=== PATIENT | female | born 1960 | race African-American/Black ===

== ENCOUNTER 2017-05-05 11:58 | Inpatient (IN) ==
--- NOTE | 2017-05-05 12:56 | Emergency Department Note ---
Silvio Yanes Gwan, am scribing for, and in the presence of, Arcadio Valdez MD 12:51 . Courtney Yanes James D, MD, personally performed the services described in this documentation, ascribed by Negar Anguiano in my presence, and it is both accurate and complete . 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 Mode of Arrival: Wheelchair Limitations: No Limitations Source: Patient, Old Records Reviewed, RN Notes Reviewed - History of Present Illness HPI Narrative: Patient is a 56 y/o female who presents to the ED with a c/o left sided facial / mouth tingling and ARCEO with an onset 2 hours [employer]. Pt has a PMHx of HTN, MS, peripheral neuropathy, IDDM, NIDDM, cyst right kidney (02/20/2016), and Laminectomy (2010). Patient confirmed that sxs onset after her Mammogram appointment. During exam, pt stated that she fell 2 days ago causing her to injury her left knee and that she is followed by Dr. Garcia and Dr. Waters. She denies f/u with orthopedic physician. Onset (ago): hour(s) Consistency: constant Severity: moderate Allergies/Adverse Reactions: Allergies Allergy/AdvReac Type Severity Reaction Status Date / Time No Known Allergies Allergy Verified 07/05/16 06:17 Home Medications: Home Medications Medication Instructions Recorded Confirmed Type Baclofen Tab [Lioresal] 10 mg PO BID 02/27/15 05/05/17 History Duloxetine HCl [Cymbalta] 60 mg PO DAILY 02/27/15 05/05/17 History Simvastatin 40 mg PO BEDTIME 02/27/15 05/05/17 History Indapamide 2.5 mg PO QAM 04/26/16 05/05/17 History hydrALAZINE TAB [Apresoline Tab] 50 mg PO TID #90 tablet 04/30/16 05/05/17 Rx glyBURIDE [Diabeta] 5 mg PO DAILY 05/07/16 05/05/17 History Gabapentin Cap/Tab [Neurontin 1,200 mg PO BID tablet 05/17/16 05/05/17 Rx Cap/Tab] Glatiramer Acetate [Copaxone] 40 mg SUBCUT MOWEFR 06/17/16 05/05/17 History Amlodipine Besylate [Amlodipine 10 mg PO DAILY 08/28/16 05/05/17 History Besylate] Pioglitazone HCl [Actos] 30 mg PO DAILY 05/05/17 05/05/17 History Review of System - Review of System 12 point system: reviewed and no additional remarkable complaints except as stated - Review of System Constitutional: Absent: chills, fever Eyes: Absent: discharge, pain Head/Ears/Nose/Throat: Absent: earache Respiratory: Absent: cough Cardiovascular: Absent: chest pain Gastrointestinal: Absent: abdominal pain, nausea, vomiting, diarrhea Genitourinary female: Absent: dysuria Musculoskeletal: Absent: arm pain, back pain, leg pain Skin: Absent: rash Neurological: Present: as per HPI, headache, other (facial/mouth tingling) Psychiatric: Absent: anxiety, depression Medical,Surgical,& Family Hx - Medical History Cardio: History of: Hypertension Psychological: History of: Depression Neurology: History of: Multiple Sclerosis (DR GARCIA 12/2015 LAST VISIT), Peripheral Neuropathy No history of: Seizures HEENT: History of: Eye Problem (READING GLASSES) Endocrine: History of: Diabetes Mellitus (IDDM), Diabetes Mellitus (NIDDM), Dyslipidemia Renal: History of: Renal Problems (Cyst Rt Kidney 02/20/16 Sched for Drainage; STENT REMOVAL 06/26/16) Genitourinary: History of: Recurring Urinary Tract Infections (2 IN PAST 3-4 MONTHS) Gastrointestinal: History of: GI Problems (CONSTIPATION DUE TO PAIN MEDS, HX OF ULCERS) Musculoskeletal: History of: Back/Neck Problems (CHRONIC BACK PAIN. SCHEDULED 2015.), Musculoskeletal Problems (FRACTURED CO) - Surgical History HEENT Surgeries: Surgical HX of: Tonsilectomy & Adenoidectomy (TONSILS) Abdominal Surgeries: Surgical HX of: Colonoscopy Reproductive Surgeries: Surgical HX of;: Gynecologic Surgery, Hysterectomy, Tubal Ligation Orthopedic Surgeries: Surgical HX of;: Implanted Devices (URETERAL STENTS), Orthopedic Surgery (CARPAL TUNEL RIGHT HAND), Spinal Surgery (LAMINECTOMY 2010) - Family History Family History: Reports;: Family Diabetes (FATHER), Family Heart Disease (MOTHER ), Family Hypertension (MOTHER), Family Stroke (MOTHER) - Social History Smoking Status: Never smoker Exam Physical Examination: GENERAL: This is a female in no apparent distress. VITAL SIGNS: HEENT: Head is normocephalic and atraumatic. Pupils are equally round and reactive to light. Extraocular movement are intact. Oropharynx is benign with moist mucous membranes. NECK: Neck is soft and supple without tenderness. There are no masses. There is no lymphadenopathy. LUNGS: Lungs are clear to auscultation bilaterally. Chest rises symmetrically. There is no chest wall tenderness. CV: Heart is regular rate and rhythm without murmurs, rubs, or gallops. ABDOMEN: Abdomen is soft, non-tender to palpation. There are no abnormal masses palpated. There is no organomegaly. Bowel sounds are present and active. SKIN: Skin is warm and dry. No rash. EXTREMITIES: Patient has full range of motion without tenderness. There is no pedal edema. NEUROLOGIC: Awake, alert, and oriented x4. Cranial nerves II through XII are grossly intact. There are no motorsensory deficits. PSYCHIATRIC: Normal affect. Normal mood. Vital Signs: Vital Signs Temperature 98.1 F 05/05/17 12:08 Pulse Rate 85 05/05/17 12:08 Respiratory Rate 21 05/05/17 12:08 Blood Pressure 181/80 05/05/17 12:08 O2 Sat by Pulse Oximetry 98 05/05/17 12:08 Course - Consultations Consultation #1: Discussed with hospitalist. Patient will be admitted to their service. Time: 14:52 Results - Labs CBC & BMP: 05/05/17 13:43 05/05/17 13:43 Lab Results: I have reviewed the patients labs - EKG EKG results: interpreted by ERMD - Impressions EKG: Normal sinus rhythm with rate of 78, low voltage QRS, nonspecific ST-T wave changes. - Diagnostic Findings Procedure: Chest x-ray: image reviewed by me (No infiltrates, no pleural effusions, no cardiomegaly.), CT: image reviewed by me (CT head: No acute intracranial lesion or hemorrhage.), X-ray: image reviewed by me (Left knee x- ray: DJD) Disposition Clinical Impression: Multiple sclerosis, Left knee pain, Diabetes mellitus, Essential hypertension, Numbness and tingling of left side of face Case discussed with: patient Condition: Stable Time of Disposition: 13:22
--- NOTE | 2017-05-05 13:23 | CT Report ---
Referring physician: Arcadio Valdez Exam: CT brain without contrast Date: May 05, 2017 Comparison: CT brain without contrast August 28, 2016 Reason: Tingling left side of face The patient is an Emergency Department patient on May 05, 2017. Technique: Axial images of the head were obtained without the use of contrast. Total DLP was 970.1 mGy*cm. Findings: There may be mild chronic microvascular ischemic change. No hydrocephalus or midline shift is present. There is no evidence of recent intracranial hemorrhage, abnormal mass effect or an acute infarction. No acute osseous process is seen. The mastoid air cells and visualized paranasal sinuses are clear. Impression: No acute intracranial abnormality is identified. The CT exam was performed using one or more of the following dose reduction techniques: Automated exposure control and adjustment of the mA and/or kV according to patient size. PROCEDURE INTERPRETED AT [facility] DEPARTMENT OF RADIOLOGY Final Report Signed by: Dr. Luly Valdivia
--- NOTE | 2017-05-05 13:25 | XRay Report ---
Exam: XR knee 3V LT Date: 05/05/2017 12:51 PM Comparison: None Indication: Knee pain after fall Technique:[AP, lateral, and sunrise left knee] Findings: Diffuse knee joint space narrowing with sclerosis and osteophytes. Small joint effusion. 34 mm osseous finding projecting from the posterior proximal left tibia. Impression: Moderate DJD with small knee joint effusion. No acute fracture or dislocation. 34 mm exostosis, osteochondroma, tug lesion, etc. in the posterior proximal left tibia. PROCEDURE INTERPRETED AT [facility] DEPARTMENT OF RADIOLOGY Final Report Signed by: Dr. Heather Kong
--- NOTE | 2017-05-05 13:27 | XRay Report ---
XR chest 2V Date: 05/05/2017 12:52 PM History: Multiple sclerosis Comparison: 07/28/2015 Technique: PA and lateral chest Findings: The heart is normal in size. The lungs and mediastinum are stable in appearance. Degenerative changes are noted. Postoperative findings in the cervical spine location. Impression: No acute cardiopulmonary pathology identified. PROCEDURE INTERPRETED AT [facility] DEPARTMENT OF RADIOLOGY Final Report Signed by: Dr. Heather Kong
[2017-05-05 14:03] LABS: Basophils % 0.5 % (0.0-0.8); Eosinophils # 0.1 10*3/uL (0.0-0.87); Eosinophils % 1.3 % (0.00-10.9); Hematocrit 32.7 VOL% (35.7-47.0); Hemoglobin 11.6 GM/DL (12.0-16.0); Immature Granulocytes % 0.3 %; Immature Granulocytes Absolute 0.02 #; Lymphocytes # 1.7 10*3/uL (1.4-4.0); Mean Corpuscular HGB Conc 35.5 GM/DL (32-36); Mean Corpuscular Hemoglobin 31 PG (27-34); Mean Corpuscular Volume 87.4 FL (87-102); Mean Platelet Volume 9.3 FL (9.6-12.0); Monocytes # 0.6 10*3/uL (0.11-0.8); Monocytes % 8.7 % (1.7-12.7); Neutrophils # 3.9 10*3/uL (1.4-7.4); Neutrophils % 62.2 % (38.7-73.9); Platelet Count 299 T/CUMM (130-400); Red Blood Count 3.74 MC/CUMM (3.8-5.5); Red Cell Distribution Width 12.1 % (9.3-17.3); White Blood Count 6.3 T/CUMM (4-12)
[2017-05-05 14:08] LABS: Apearance,Urine CLEAR (Clear); Bacteria,Urine Occasional /HPF (Few); Bilirubin,Urine Negative (Negative); Blood, Urine Negative (Negative); Glucose,Urine (UA) Negative (Negative); Ketones,Urine Negative (Negative); Mucus,Urine Occasional /LPF (Occasional); Nitrite,Urine Negative (Negative); Protein,Urine Negative; RBC,Urine 1 /HPF (0-4); Squamous Epithelial Cell,Urine Occasional /HPF (0-10); Urine Color Yellow (Yellow); Urine Specific Gravity 1.017 (1.001-1.035); Urine Urobilinogen < 2.0 EU/DL (0.2-1.0); WBC,Urine 1 /HPF (0-6)
[2017-05-05 14:13] LABS: Barbiturates Screen,Urine Negative (Negative); Benzodiazepines Screen,Urine Negative (Negative); Cannabinoid Screen,Urine Negative (Negative); Opiate Screen,Urine Positive (Negative); Phencyclidine Screen,Urine Negative (Negative)
--- NOTE | 2017-05-05 14:21 | EKG Report ---
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
[2017-05-05 14:29] LABS: Alanine Aminotransferase 20 U/L (13-56); Albumin 3.8 G/DL (3.4-5.0); Alkaline Phosphatase 94 U/L (45-117); Aspartate Amino Transferase 14 U/L (0-37); Bilirubin,Total < 0.39 MG/DL (0.2-1.0); Blood Urea Nitrogen 29 MG/DL (7-18); Calcium 8.7 MG/DL (8.5-10.1); Glucose 47 MG/DL (74-106); Osmolality,Calculated 288.8 MOS/KG (273-304); Sodium 144 MMOL/L (136-145); Total Protein 7.2 G/DL (6.4-8.3)
--- NOTE | 2017-05-05 15:46 | Hospitalist History & Physical ---
Assessment and Plan (1) Acute renal insufficiency Status: Acute Assessment and plan: BUN and creatinine noted at 29 and 4.10. Current Visit: No (2) Diabetes mellitus Status: Acute Current Visit: Yes (3) Multiple sclerosis Status: Acute Current Visit: Yes (4) Numbness and tingling of left side of face Status: Acute Current Visit: Yes History of Present Illness Chief complaint: Left-sided facial tingling History of present illness: This is a very pleasant 56-year-old female that presented to the ED at [facility] this afternoon for evaluation of left-sided facial tingling and headache. The patient has a very complex medical history significant for hypertension, multiple sclerosis, peripheral neuropathy, insulin -dependent diabetes mellitus, recurrent urinary tract infections, chronic lower back pain, and depression. The patient has a surgical history significant for tonsillectomy, adenoidectomy, colonoscopy, hysterectomy, tubal ligation, ureteral stent placement, carpal tunnel surgery to the right hand, and laminectomy. The patient reports the onset of symptoms today during her appointment for her mammogram. She reports that she started to feel what she describes as "tightening and weakness of the left side of her face". In addition she reported that she had an excruciating headache during this time, however denies loss of vision or syncope. She informed the staff at the radiology center about the symptoms that she was experiencing and they advised her to seek medical attention. In addition the patient reports a recent ground- level fall with injury to her left knee. She reports that she fell on Friday she has had difficulty ambulating as a result. At the time of ED presentation labs were obtained; which reported a white blood cell count at 6.3, hemoglobin at 11.6, hematocrit at 32.7, and platelet count at 299. Chemistry panel was obtained; which reported a sodium at 144, potassium 4.0, chloride 106, carbon dioxide at 30, anion gap at 12, BUN is 29, creatinine at 1.40, and glucose at 47. Urinalysis was obtained and was essentially unremarkable. Urine toxicology was obtained which was positive for opiates. CT head was essentially unremarkable for any acute intracranial processes, mass-effect, and shift. Chest x-ray was negative for any acute cardiopulmonary processes. X-ray of the left knee was obtained which reported moderate degenerative joint disease with small knee joint effusion, no acute fracture dislocation, and 34 mm exostosis, osteochondroma, took lesion, in the posterior proximal left tibia. After brief discussion with both Dr. Foreman and Dr. Zamora, the patient will be admitted to the hospitalist services for continuation of care. We will consult Dr. Garcia, patient is known to him. Home Medications Medication Instructions Recorded Confirmed Type Baclofen Tab [Lioresal] 10 mg PO BID 02/27/15 05/05/17 History Duloxetine HCl [Cymbalta] 60 mg PO DAILY 02/27/15 05/05/17 History Simvastatin 40 mg PO BEDTIME 02/27/15 05/05/17 History Indapamide 2.5 mg PO QAM 04/26/16 05/05/17 History hydrALAZINE TAB [Apresoline Tab] 50 mg PO TID #90 tablet 04/30/16 05/05/17 Rx glyBURIDE [Diabeta] 5 mg PO DAILY 05/07/16 05/05/17 History Gabapentin Cap/Tab [Neurontin 1,200 mg PO BID tablet 05/17/16 05/05/17 Rx Cap/Tab] Glatiramer Acetate [Copaxone] 40 mg SUBCUT MOWEFR 06/17/16 05/05/17 History Amlodipine Besylate [Amlodipine 10 mg PO DAILY 08/28/16 05/05/17 History Besylate] Pioglitazone HCl [Actos] 30 mg PO DAILY 05/05/17 05/05/17 History Allergies Allergy/AdvReac Type Severity Reaction Status Date / Time No Known Allergies Allergy Verified 07/05/16 06:17 Medical,Surgical,& Family Hx - Medical History Cardio: History of: Hypertension Psychological: History of: Depression Neurology: History of: Multiple Sclerosis (DR GARCIA 12/2015 LAST VISIT), Peripheral Neuropathy No history of: Seizures HEENT: History of: Eye Problem (READING GLASSES) Endocrine: History of: Diabetes Mellitus (IDDM), Diabetes Mellitus (NIDDM), Dyslipidemia Renal: History of: Renal Problems (Cyst Rt Kidney 02/20/16 Sched for Drainage; STENT REMOVAL 06/26/16) Genitourinary: History of: Recurring Urinary Tract Infections (2 IN PAST 3-4 MONTHS) Gastrointestinal: History of: GI Problems (CONSTIPATION DUE TO PAIN MEDS, HX OF ULCERS) Musculoskeletal: History of: Back/Neck Problems (CHRONIC BACK PAIN. SCHEDULED 2015.), Musculoskeletal Problems (FRACTURED CO) - Surgical History HEENT Surgeries: Surgical HX of: Tonsilectomy & Adenoidectomy (TONSILS) Abdominal Surgeries: Surgical HX of: Colonoscopy Reproductive Surgeries: Surgical HX of;: Gynecologic Surgery, Hysterectomy, Tubal Ligation Orthopedic Surgeries: Surgical HX of;: Implanted Devices (URETERAL STENTS), Orthopedic Surgery (CARPAL TUNEL RIGHT HAND), Spinal Surgery (LAMINECTOMY 2010) - Family History Family History: Reports;: Family Diabetes (FATHER), Family Heart Disease (MOTHER ), Family Hypertension (MOTHER), Family Stroke (MOTHER) - Social History Smoking Status: Never smoker 12 point system: reviewed and no additional remarkable complaints except as stated Exam - Constitutional Vitals: Period Temp Pulse Resp BP Sys/Piña Pulse Ox Last 24 Hr 98.1 F-98.1 F 85-85 18-21 150-181/80-81 97-98 General appearance: normal weight, no acute distress - Head Head exam: Present: normal inspection, normocephalic, atraumatic - Eye Eye exam: Present: EOMI. Absent: conjunctival injection, nystagmus Pupils: Present: CONNIE, normal accommodation - ENT ENT exam: Present: normal exam, normal external ear exam - Neck Neck exam: Present: normal inspection. Absent: lymphadenopathy, meningismus, tenderness, thyromegaly - Respiratory Respiratory exam: Present: clear to auscultation bilaterally. Absent: rales, rhonchi, stridor, wheezes - Cardiovascular Cardiovascular exam: Present: regular rate and rhythm. Absent: carotid bruit, diastolic murmur, gallop, JVD, rubs, systolic murmur - GI/Abdominal GI/Abdominal exam: Present: normal bowel sounds, soft. Absent: firm, guarding, tenderness - Extremities Exam Extremities exam: Present: normal inspection, normal capillary refill, full ROM , edema (Trace edema to the left knee) - Back Exam Back exam: Present: normal inspection - Neurological Exam Neurological exam: Present: alert, oriented X3, CN II-XII intact, other (No gross motor defect noted) - Expanded Neurological Exam Neurological exam: Absent: ataxia, expressive aphasia, memory loss-recent event , receptive aphasia, tremor Patient oriented to: Present: person, place, time Speech: Absent: anomia, expressive aphasia, fluid speech, garbled, receptive aphasia, slurred, total aphasia Cranial nerves: EOM's intact: Normal, facial palsy with forehead movement: Normal, facial palsy without forehead movement: Normal, facial sensation: Normal , gag reflex: Normal, nystagmus: Normal, tongue deviation: Normal Cerebellar function: finger to nose: Normal, heel to byrd: Normal, Romberg: Normal Upper motor neuron: Babinski sign: Normal, Bossman neglect: Normal, pronator drift : Normal, sensory extinction: Normal Neuro motor strength exam: LUE: 5, RUE: 5, LLE: 4, RLE: 5 DTR: achilles tendon (L): 3+, achilles tendon (R): 3+, patellar (L): 3+ Coma Scale Eye Opening: Spontaneous Coma Scale Motor Response: Obeys Commands Coma Scale Verbal Response: Oriented Coma Scale Total: 15 - Psychiatric Psychiatric exam: Present: normal affect, normal mood - Skin Skin exam: Present: normal color, warm Results - Labs CBC & BMP: 05/05/17 13:43 05/05/17 13:43 Lab Results: I have reviewed the past 24 hour labs Quality Measures - Stroke Onset of Symptoms Date: 05/05/17 Onset of Symptoms Time: 10:30 Symptom Onset Unknown: No
[2017-05-05] MEDS ORDERED: ACETAMINOPHEN 325 MG TABLET PO PRN (16:22)
[2017-05-05] MEDS ORDERED: ONDANSETRON 4 MG/2 ML VIAL IV PRN (16:22)
[2017-05-05] MEDS ORDERED: DEXTROSE 5% NACL 0.45% 1,000 ML IV SCH (16:30)
[2017-05-05] MEDS ORDERED: GLUCAGON 1 MG VIAL IM PRN (16:32)
[2017-05-05] MEDS ORDERED: DEXTROSE 50% 25 GM/50 ML VIAL IV PRN (16:32)
--- NOTE | 2017-05-05 16:39 | Family Practice History&Phys ---
Assessment and Plan (1) Numbness and tingling of left side of face Status: Acute Assessment and plan: Most likely related to her multiple sclerosis but need to rule out ischemic changes Current Visit: Yes (2) Multiple sclerosis Status: Chronic Assessment and plan: Present symptoms are likely related to her multiple sclerosis. She has had intermittent exacerbations. Current Visit: Yes (3) Diabetes mellitus Status: Chronic Assessment and plan: Stable on present medication and diet. Will start on sliding scale Current Visit: Yes (4) Essential hypertension Status: Chronic Assessment and plan: Stable on present medications Current Visit: Yes (5) Left knee pain Status: Acute Assessment and plan: We will obtain an x-ray and start on appropriate therapy. Current Visit: Yes History of Present Illness Chief complaint: Weakness and paresthesias History of present illness: Ms. Lofton is a 56 year old female HPI Narrative: Patient is a 56 y/o female who presents to the ED with a c/o left sided facial / mouth tingling and ARCEO with an onset 2 hours prior to arrival in the emergency room. Patient states the symptoms are different than she has had with her normal MS symptoms. Head CT in the emergency room was on remarkable. She was seen by the emergency room physician and in view of history admitted further evaluation therapy. Home Medications Medication Instructions Recorded Confirmed Type Baclofen Tab [Lioresal] 10 mg PO BID 02/27/15 05/05/17 History Duloxetine HCl [Cymbalta] 60 mg PO DAILY 02/27/15 05/05/17 History Simvastatin 40 mg PO BEDTIME 02/27/15 05/05/17 History Indapamide 2.5 mg PO QAM 04/26/16 05/05/17 History hydrALAZINE TAB [Apresoline Tab] 50 mg PO TID #90 tablet 04/30/16 05/05/17 Rx glyBURIDE [Diabeta] 5 mg PO DAILY 05/07/16 05/05/17 History Gabapentin Cap/Tab [Neurontin 1,200 mg PO BID tablet 05/17/16 05/05/17 Rx Cap/Tab] Glatiramer Acetate [Copaxone] 40 mg SUBCUT MOWEFR 06/17/16 05/05/17 History Amlodipine Besylate [Amlodipine 10 mg PO DAILY 08/28/16 05/05/17 History Besylate] Pioglitazone HCl [Actos] 30 mg PO DAILY 05/05/17 05/05/17 History Allergies Allergy/AdvReac Type Severity Reaction Status Date / Time No Known Allergies Allergy Verified 07/05/16 06:17 Medical,Surgical,& Family Hx - Medical History Cardio: History of: Hypertension Psychological: History of: Depression Neurology: History of: Multiple Sclerosis (DR PATEL 12/2015 LAST VISIT), Peripheral Neuropathy No history of: Seizures HEENT: History of: Eye Problem (READING GLASSES) Endocrine: History of: Diabetes Mellitus (IDDM), Diabetes Mellitus (NIDDM), Dyslipidemia Renal: History of: Renal Problems (Cyst Rt Kidney 02/20/16 Sched for Drainage; STENT REMOVAL 06/26/16) Genitourinary: History of: Recurring Urinary Tract Infections (2 IN PAST 3-4 MONTHS) Gastrointestinal: History of: GI Problems (CONSTIPATION DUE TO PAIN MEDS, HX OF ULCERS) Musculoskeletal: History of: Back/Neck Problems (CHRONIC BACK PAIN. SCHEDULED 2015.), Musculoskeletal Problems (FRACTURED CO) - Surgical History HEENT Surgeries: Surgical HX of: Tonsilectomy & Adenoidectomy (TONSILS) Abdominal Surgeries: Surgical HX of: Colonoscopy Reproductive Surgeries: Surgical HX of;: Gynecologic Surgery, Hysterectomy, Tubal Ligation Orthopedic Surgeries: Surgical HX of;: Implanted Devices (URETERAL STENTS), Orthopedic Surgery (CARPAL TUNEL RIGHT HAND), Spinal Surgery (LAMINECTOMY 2010) - Family History Family History: Reports;: Family Diabetes (FATHER), Family Heart Disease (MOTHER ), Family Hypertension (MOTHER), Family Stroke (MOTHER) - Social History Smoking Status: Never smoker Frequency of Alcohol Use: None Type of Drug Use: None Marital Status: Lives With:: Spouse Functional capacity: uses cane/walker Exam - Constitutional Vitals: Period Temp Pulse Resp BP Sys/Piña Pulse Ox Last 24 Hr 98.1 F-98.1 F 76-86 13-21 131-207/67-100 97-99 General appearance: no acute distress - Head Head exam: Present: normal inspection, normocephalic - Eye Pupils: Present: CONNIE - ENT ENT exam: Present: normal exam - Neck Neck exam: Present: normal inspection - Respiratory Respiratory exam: Present: clear to auscultation bilaterally - Cardiovascular Cardiovascular exam: Present: regular rate and rhythm - GI/Abdominal GI/Abdominal exam: Present: normal bowel sounds, soft - Extremities Exam Extremities exam: Present: full ROM, other (Pain level today secondary to fall) - Back Exam Back exam: Present: normal inspection - Neurological Exam Neurological exam: Present: alert, oriented X3, other (Patient has paresthesias involving her left face and neck) - Psychiatric Psychiatric exam: Present: normal affect - Skin Skin exam: Present: normal color Results - Labs CBC & BMP: 05/05/17 13:43 05/05/17 13:43 Quality Measures - Stroke Onset of Symptoms Date: 05/05/17 Onset of Symptoms Time: 10:30 Symptom Onset Unknown: No
[2017-05-05] MEDS ORDERED: DEXTROSE 50% 25 GM/50 ML VIAL IV ONE (16:49)
[2017-05-05] MEDS: DULoxetine 30 MG CAPSULE PO SCH (18:14)
[2017-05-05] MEDS: PIOGLITAZONE 15 MG TABLET PO SCH (18:14)
[2017-05-05] MEDS: INSULIN LISPRO 100 UNIT/ML SUBCUT SCH ×2 (18:15→20:12)
[2017-05-05] MEDS: POTASSIUM CHLORIDE INJ 10 MEQ in SODIUM CHLORIDE 0.45% 1,000 ML IV SCH (18:22)
[2017-05-05] MEDS: BACLOFEN 10 MG TABLET PO SCH (21:01)
[2017-05-05] MEDS: GABAPENTIN 600 MG TABLET PO SCH (21:01)
[2017-05-05] MEDS: DOCUSATE SODIUM 100 MG CAPSULE PO SCH (21:01)
[2017-05-05] MEDS: SIMVASTATIN 40 MG TABLET PO SCH (21:01)
[2017-05-06 05:58] LABS: Magnesium 2.3 MG/DL (1.8-2.4); Risk Ratio 3.08; VLDL CHOLESTEROL 19.8 MG/DL
[2017-05-06] MEDS: PIOGLITAZONE 15 MG TABLET PO SCH ×2 (09:01→09:54)
[2017-05-06] MEDS: glyBURIDE 5 MG TABLET PO SCH ×2 (09:01→09:54)
--- NOTE | 2017-05-06 09:12 | XRay Report ---
Exam: XR knee 2V LT Date: 05/06/2017 7:55 AM Comparison: 05/05/2017 Indication: Knee pain after fall Technique:[AP and lateral left knee] Findings: Diffuse knee joint space narrowing with sclerosis and osteophytes. Small knee joint effusion. Stable 34 mm ossific finding projecting from the posterior proximal left tibia. Impression: Moderate DJD with small knee joint effusion. No evidence of fracture or dislocation. 34 mm exostosis, osteochondroma, tug lesion, etc. in the posterior proximal left tibia. PROCEDURE INTERPRETED AT [facility] DEPARTMENT OF RADIOLOGY Final Report Signed by: Dr. Heather Kong
[2017-05-06] MEDS: PANTOPRAZOLE 40 MG TABLET PO SCH (09:49)
[2017-05-06] MEDS: GABAPENTIN 600 MG TABLET PO SCH ×2 (09:49→20:39)
[2017-05-06] MEDS: POTASSIUM CHLORIDE INJ 10 MEQ in SODIUM CHLORIDE 0.45% 1,000 ML IV SCH ×2 (09:49→23:58)
[2017-05-06] MEDS: INDAPAMIDE 2.5 MG TABLET PO SCH (09:50)
[2017-05-06] MEDS: amLODIPine 10 MG TABLET PO SCH (09:50)
[2017-05-06] MEDS: DULoxetine 30 MG CAPSULE PO SCH (09:50)
[2017-05-06] MEDS: BACLOFEN 10 MG TABLET PO SCH ×2 (09:50→20:39)
[2017-05-06] MEDS: INSULIN LISPRO 100 UNIT/ML SUBCUT SCH ×4 (09:51→21:36)
[2017-05-06] MEDS: DOCUSATE SODIUM 100 MG CAPSULE PO SCH ×2 (09:51→20:39)
[2017-05-06] MEDS ORDERED: methylPREDNISolone SOD SUC 40 MG/1 ML VIAL ONE (10:04)
[2017-05-06] MEDS: methylPREDNISolone SOD SUC 40 MG/1 ML VIAL IV SCH ×2 (10:07→16:59)
--- NOTE | 2017-05-06 13:34 | Magnetic Resonance Report ---
Referring physician: Alexx Waters Exam: MRI brain with and without contrast Date: May 06, 2017 Comparison: CT brain without contrast May 05, 2017 Reason: Mental status change and paresthesias history multiple sclerosis The patient is an inpatient who was admitted on November 04, 2017. Technique: MRI of the brain was performed with and without the use of 20 cc of IV Dotarem contrast. Obtained precontrast images include sagittal T1, axial diffusion-weighted, axial FLAIR, sagittal FLAIR, axial T2, axial gradient and axial T1 sequences. Postcontrast sequences include axial and coronal T1 sequences. A 1.2 Fani open magnet was used. Findings: There is mild motion artifact. There are small scattered areas of T2/FLAIR hyperintensity (greater than 10) within the cerebral white matter bilaterally. Some of these areas are oriented perpendicular to the ventricles. One of the larger areas is periventricular and located in the right temporal occipital region. It measures 1.1 cm on image 12, series 2. This is similar to the previous study of April 27, 2016 and likely represents the patient's known multiple sclerosis. Other considerations would include chronic microvascular ischemic change, other demyelinating processes, vasculitis, viral process or Lyme disease. No hydrocephalus or midline shift is present. There is no evidence of recent intracranial hemorrhage, abnormal mass effect or an acute infarction. No abnormal extra-axial fluid collection is identified, and no suspicious intracranial enhancement is seen. Major vascular flow voids are visualized. The orbits, sella and brainstem are unremarkable. There is minimal scattered mucosal thickening within the paranasal sinuses. There is also minimal fluid within the left mastoid air cells. Impression: There are small scattered areas of T2/FLAIR hyperintensity again within the cerebral white matter bilaterally. Some of these areas are oriented perpendicular to the ventricles. This is stable compared to April 27, 2016 and likely represents the patient's known multiple myeloma. There is no evidence of active demyelination. PROCEDURE INTERPRETED AT [facility] DEPARTMENT OF RADIOLOGY Final Report Signed by: Dr. Luly Valdivia
--- NOTE | 2017-05-06 14:15 | Family Practice Progress Note ---
Family Practice - PN: Subj Interval history: Patient states continues to have some paresthesias in her left cheek and neck but does feel that they're improved.. No other areas of involvement. Patient is complaining of pain in her knee on the left side up. States she had a recent fall. MRI of the brain and x-rays are still pending. We'll await results of the studies. Exam (Progress Note) - Constitutional Vitals: Period Temp Pulse Resp BP Sys/Piña Pulse Ox Last 24 Hr 97.1 F-98.3 F 69-89 13-21 123-190/67-100 96-99 Results - Labs CBC & BMP: 05/05/17 13:43 05/05/17 13:43 Assessment and Plan (1) Numbness and tingling of left side of face Status: Acute Assessment and plan: Most likely related to her multiple sclerosis but need to rule out ischemic changes Current Visit: Yes (2) Multiple sclerosis Status: Chronic Assessment and plan: Present symptoms are likely related to her multiple sclerosis. She has had intermittent exacerbations. Current Visit: Yes (3) Diabetes mellitus Status: Chronic Assessment and plan: Stable on present medication and diet. Will start on sliding scale Current Visit: Yes (4) Essential hypertension Status: Chronic Assessment and plan: Stable on present medications Current Visit: Yes (5) Left knee pain Status: Acute Assessment and plan: We will obtain an x-ray and start on appropriate therapy. Current Visit: Yes Quality Measures - Stroke Onset of Symptoms Date: 05/05/17 Onset of Symptoms Time: 10:30 Symptom Onset Unknown: No
--- NOTE | 2017-05-06 17:55 | Neurology Consult Note ---
History of Present Illness History of present illness: Ms. Lofton is a 56 year old right-handed -[place] lady with past medical history significant for hypertension, multiple sclerosis who presents to the ED with a c/o left sided facial /mouth tingling and ARCEO with an onset 2 hours prior to arrival in the emergency room. Patient states the symptoms were different than she has had with her normal MS symptoms. Head CT in the emergency room was on remarkable. MRI of the brain reveals no acute exacerbation of MS. It did show some periventricular white matter changes consistent with MS. no enhancement seen on MRI to suggest acute exacerbation. Symptoms lasted for 30 minutes or so and then resolved Home Medications Medication Instructions Recorded Confirmed Type Baclofen Tab [Lioresal] 10 mg PO BID 02/27/15 05/05/17 History Duloxetine HCl [Cymbalta] 60 mg PO DAILY 02/27/15 05/05/17 History Simvastatin 40 mg PO BEDTIME 02/27/15 05/05/17 History Indapamide 2.5 mg PO QAM 04/26/16 05/05/17 History hydrALAZINE TAB [Apresoline Tab] 50 mg PO TID #90 tablet 04/30/16 05/05/17 Rx glyBURIDE [Diabeta] 5 mg PO DAILY 05/07/16 05/05/17 History Gabapentin Cap/Tab [Neurontin 1,200 mg PO BID tablet 05/17/16 05/05/17 Rx Cap/Tab] Glatiramer Acetate [Copaxone] 40 mg SUBCUT MOWEFR 06/17/16 05/05/17 History Amlodipine Besylate [Amlodipine 10 mg PO DAILY 08/28/16 05/05/17 History Besylate] Pioglitazone HCl [Actos] 30 mg PO DAILY 05/05/17 05/05/17 History Allergies Allergy/AdvReac Type Severity Reaction Status Date / Time No Known Allergies Allergy Verified 07/05/16 06:17 12 point system: reviewed and no additional remarkable complaints except as stated Medical,Surgical,& Family Hx - Medical History Cardio: History of: Hypertension Psychological: History of: Depression Neurology: History of: Multiple Sclerosis (DR PATEL 12/2015 LAST VISIT), Peripheral Neuropathy No history of: Seizures HEENT: History of: Eye Problem (READING GLASSES) Endocrine: History of: Diabetes Mellitus (IDDM), Diabetes Mellitus (NIDDM), Dyslipidemia Renal: History of: Renal Problems (Cyst Rt Kidney 02/20/16 Sched for Drainage; STENT REMOVAL 06/26/16) Genitourinary: History of: Recurring Urinary Tract Infections (2 IN PAST 3-4 MONTHS) Gastrointestinal: History of: GI Problems (CONSTIPATION DUE TO PAIN MEDS, HX OF ULCERS) Musculoskeletal: History of: Back/Neck Problems (CHRONIC BACK PAIN. SCHEDULED 2015.), Musculoskeletal Problems (FRACTURED CO) - Surgical History HEENT Surgeries: Surgical HX of: Tonsilectomy & Adenoidectomy (TONSILS) Abdominal Surgeries: Surgical HX of: Colonoscopy Reproductive Surgeries: Surgical HX of;: Gynecologic Surgery, Hysterectomy, Tubal Ligation Orthopedic Surgeries: Surgical HX of;: Implanted Devices (URETERAL STENTS), Orthopedic Surgery (CARPAL TUNEL RIGHT HAND), Spinal Surgery (LAMINECTOMY 2010) - Family History Family History: Reports;: Family Diabetes (FATHER), Family Heart Disease (MOTHER ), Family Hypertension (MOTHER), Family Stroke (MOTHER) - Social History Smoking Status: Never smoker Frequency of Alcohol Use: None Type of Drug Use: None Exam - Constitutional Vitals: Period Temp Pulse Resp BP Sys/Piña Pulse Ox Last 24 Hr 97.1 F-98.3 F 70-88 18-20 123-139/70-88 96-99 Exam: GENERAL: Patient is in no acute distress. NECK: Neck is supple. There is no JVD. No carotid bruits present. No thyroid masses. CVS: First and second heart sounds are normal. There is no S3 present. Regular rate and rhythm. RESPIRATORY: Lungs are clear to auscultation without any rales or rhonchi. ABDOMEN: Soft and non-tender. Bowel sounds are present. There is no hepatosplenomegaly. EXT: There is no palpable edema. Peripheral pulses are present. Skin: No rashes Central Nervous system: General: Alert, awake and Oriented x 3 Speech: Fluent Comprehension: Intact and normal Facial expressions: Normal Cranial Nerves: CN1/Olfactory: Normal CN II/ Optic: Normal, Visual Rosas unreliable CN III, and : CONNIE & EOMI CN V: Normal & intact CN VII: face is symmetric CNVIII: Normal CN XI/X/XI/XII: Intact and Normal Motor: Bulk and Tone is normal. Strength in the right 3-4/5 Strength in the left 3-4/5 Sensory: Grossly intact for all the modalities of PP, LT and temp sense Reflexes: 1+ and symmetrical Cerebellar function: Normal finger to nose and heel to byrd testing. Toes: Equivocal Gait: Broad-based gait. Walking with the help of a walker. Results - Labs CBC & BMP: 05/05/17 13:43 05/05/17 13:43 Assessment and Plan (1) Complicated migraine Status: Acute Assessment and plan: Add Neurontin 600 mg at noontime Fioricet 1 tablet every 4 to every 6 as needed Current Visit: Yes (2) Multiple sclerosis Status: Chronic Assessment and plan: Continue Copaxone. Stop Solu-Medrol Consult PT and OT Current Visit: Yes
[2017-05-06] MEDS: SIMVASTATIN 40 MG TABLET PO SCH (20:39)
[2017-05-07 04:11] LABS: Basophils % 0.1 % (0.0-0.8); Hematocrit 34.1 VOL% (35.7-47.0); Hemoglobin 11.9 GM/DL (12.0-16.0); Immature Granulocytes % 0.9 %; Immature Granulocytes Absolute 0.08 #; Lymphocytes # 1.4 10*3/uL (1.4-4.0); Lymphocytes % 15.3 % (21.3-54.2); Mean Corpuscular HGB Conc 34.9 GM/DL (32-36); Mean Corpuscular Hemoglobin 30 PG (27-34); Mean Corpuscular Volume 85.7 FL (87-102); Mean Platelet Volume 10.1 FL (9.6-12.0); Monocytes # 0.4 10*3/uL (0.11-0.8); Monocytes % 4.9 % (1.7-12.7); Neutrophils % 78.8 % (38.7-73.9); Platelet Count 326 T/CUMM (130-400); Red Blood Count 3.98 MC/CUMM (3.8-5.5); Red Cell Distribution Width 11.9 % (9.3-17.3); White Blood Count 8.8 T/CUMM (4-12)
[2017-05-07 04:41] LABS: Calcium 9.6 MG/DL (8.5-10.1); Osmolality,Calculated 286.4 MOS/KG (273-304); Potassium 4.7 MMOL/L (3.5-5.1)
--- NOTE | 2017-05-07 08:08 | Discharge Summary ---
Hospital Course - Hospital Course Hospital Course: HPI Narrative: Patient is a 56 y/o female who presents to the ED with a c/o left sided facial / mouth tingling and ARCEO with an onset 2 hours prior to arrival in the emergency room. Patient states the symptoms are different than she has had with her normal MS symptoms. Head CT in the emergency room was on remarkable. She was seen by the emergency room physician and in view of history admitted further evaluation therapy HOSPITAL COURSE -patient was admitted to hospital lab and x-ray studies obtained. Head CT revealed no acute changes. Since symptoms persisted an MRI of the brain was obtained. MRI revealed multiple areas of white matter changes consistent with multiple sclerosis. No acute changes noted. Obtain an x-ray of her knee which revealed small knee effusion otherwise unremarkable. Patient had fallen at home. Patient's symptoms have totally resolved at time of discharge. She was seen in consultation by who concurred with evaluation and diagnosed. Will discharge patient to home care and arrange follow-up to the office. Have patient call or return to the emergency room condition worsening problems develop Diagnosis - Discharge Diagnosis (1) Numbness and tingling of left side of face Status: Acute (2) Multiple sclerosis Status: Chronic (3) Diabetes mellitus Status: Chronic (4) Essential hypertension Status: Chronic (5) Left knee pain Status: Acute Discharge Plan - Discharge Data Disposition: Disch To Home/Self Care Condition at Discharge: Stable Discharge Diet: advance to your usual diet, diabetic diet Activity: ambulate only with your walker Weight Bearing at Discharge: weight bear as tolerated Contact your physician if you experience:: fever over 101, Nausea/Vomiting, Shortness of breath - Discharge Medications Continue Simvastatin 40 mg PO BEDTIME Baclofen Tab [Lioresal] 10 mg PO BID Duloxetine HCl [Cymbalta] 60 mg PO DAILY Indapamide 2.5 mg PO QAM hydrALAZINE TAB [Apresoline Tab] 50 mg PO TID #90 tablet glyBURIDE [Diabeta] 5 mg PO DAILY Gabapentin Cap/Tab [Neurontin Cap/Tab] 1,200 mg PO BID tablet Glatiramer Acetate [Copaxone] 40 mg SUBCUT MOWEFR Amlodipine Besylate 10 mg PO DAILY Pioglitazone HCl [Actos] 30 mg PO DAILY - Follow Up or Referral Follow Up: Alexx Waters DO [Primary Care Provider] - 1 Week - Forms/Instructions Exam - Constitutional Vitals: Period Temp Pulse Resp BP Sys/Piña Pulse Ox Last 24 Hr 97.3 F-98.3 F 78-97 14-20 128-146/69-81 95-99 General appearance: no acute distress - Head Head exam: Present: normal inspection - Eye Pupils: Present: CONNIE - ENT ENT exam: Present: normal exam - Neck Neck exam: Present: normal inspection - Respiratory Respiratory exam: Present: clear to auscultation bilaterally - Cardiovascular Cardiovascular exam: Present: regular rate and rhythm - GI/Abdominal GI/Abdominal exam: Present: normal bowel sounds, soft - Extremities Exam Extremities exam: Present: full ROM, other (Diffuse tenderness over the anterior aspect of the left knee secondary to fall) - Back Exam Back exam: Present: normal inspection - Neurological Exam Neurological exam: Present: other (Patient has sensory and motor weakness secondary to MS) - Psychiatric Psychiatric exam: Present: normal affect - Skin Skin exam: Present: normal color Discharge Results Procedures and tests throughout hospitalization: Pending Orders 05/08/17 04:00 Basic Metabolic Panel IN AM Comp Blood Count Auto Diff IN AM Labs on day of discharge: Labs from last 24 hours 05/07/17 05/07/17 05/06/17 03:06 03:06 20:06 WBC 8.8 D RBC 3.98 Hgb 11.9 L Hct 34.1 L MCV 85.7 L MCH 30 MCHC 34.9 RDW 11.9 Plt Count 326 MPV 10.1 Neut % (Auto) 78.8 H Lymph % (Auto) 15.3 L Baxter % (Auto) 4.9 Eos % (Auto) 0.0 Baso % (Auto) 0.1 Neut # (Auto) 7.0 Lymph # (Auto) 1.4 Baxter # (Auto) 0.4 Eos # (Auto) 0.0 Baso # (Auto) 0.0 Immature Gran % 0.9 Nucleated RBC % 0.0 Immature Gran # 0.08 Nucleated RBCs # 0.00 Sodium 140 Potassium 4.7 Chloride 105 Carbon Dioxide 27 Anion Gap 12.7 BUN 26 H Creatinine 1.30 H GFR Calculation 75 BUN/Creatinine Ratio 20.00 Glucose 161 H POC Glucose 220 H Calculated Osmolality 286.4 Calcium 9.6 05/06/17 05/06/17 15:27 11:10 WBC RBC Hgb Hct MCV MCH MCHC RDW Plt Count MPV Neut % (Auto) Lymph % (Auto) Baxter % (Auto) Eos % (Auto) Baso % (Auto) Neut # (Auto) Lymph # (Auto) Baxter # (Auto) Eos # (Auto) Baso # (Auto) Immature Gran % Nucleated RBC % Immature Gran # Nucleated RBCs # Sodium Potassium Chloride Carbon Dioxide Anion Gap BUN Creatinine GFR Calculation BUN/Creatinine Ratio Glucose POC Glucose 238 H 104 Calculated Osmolality Calcium DS: Provider Date of admission: 05/05/17 15:56 Primary care physician: Alexx Waters DO Attending physician on admission: Alexx Waters DO Consults: 05/05/17 16:22 Consult to Physician [CONS] Routine Comment: Consulting Provider: Adalberto Garcia 05/05/17 18:09 Consult to [facility], Educator [CONS] Routine Reason for [employer] Dev[employer] Engineer: Evaluate and Recommend 05/06/17 08:02 Consult to Physical Therapy [CONS] Routine Reason for Physical Therapy: Evaluate and Treat Start Therapy: Today Discharging clinician: Alexx Waters DO
[2017-05-07] MEDS: PIOGLITAZONE 15 MG TABLET PO SCH (08:23)
[2017-05-07] MEDS: amLODIPine 10 MG TABLET PO SCH (08:23)
[2017-05-07] MEDS: INDAPAMIDE 2.5 MG TABLET PO SCH (08:23)
[2017-05-07] MEDS: GABAPENTIN 600 MG TABLET PO SCH (08:23)
[2017-05-07] MEDS: BACLOFEN 10 MG TABLET PO SCH (08:23)
[2017-05-07] MEDS: glyBURIDE 5 MG TABLET PO SCH (08:23)
[2017-05-07] MEDS: DULoxetine 30 MG CAPSULE PO SCH (08:24)
[2017-05-07] MEDS: PANTOPRAZOLE 40 MG TABLET PO SCH (08:24)
[2017-05-07] MEDS: DOCUSATE SODIUM 100 MG CAPSULE PO SCH (08:24)
[2017-05-07] MEDS: INSULIN LISPRO 100 UNIT/ML SUBCUT SCH (08:31)
[2017-05-07 09:56] VITALS: BP 139/76
[2017-05-07] MEDS: POTASSIUM CHLORIDE INJ 10 MEQ in SODIUM CHLORIDE 0.45% 1,000 ML IV SCH (09:57)
[2017-05-07] MEDS ORDERED: GABAPENTIN 600 MG TABLET PO SCH (12:00)
== END 2017-05-07 10:40 | disposition home or self-care (01) | DRG 103 ==
LOC: N.ED 11:58 → N.2E 15:56 → N.EDINP 15:56 → N.2E 16:15
PROVIDERS: ADMIT Family Medicine; ATTEND Family Medicine

== ENCOUNTER 2020-06-24 04:03 | Inpatient (IN) ==
[2020-06-24 05:16] LABS: Amorphous Crystals,Urine Few /HPF (Few); Apearance,Urine CLEAR (Clear); Bacteria,Urine Occasional /HPF (Few); Bilirubin,Urine Negative (Negative); Blood, Urine Negative (Negative); Glucose,Urine (UA) Negative (Negative); Ketones,Urine Negative (Negative); Nitrite,Urine Negative (Negative); Protein,Urine 30 MG/DL; RBC,Urine 1 /HPF (0-4); Squamous Epithelial Cell,Urine Occasional /HPF (0-10); Urine Color Yellow (Yellow); Urine Specific Gravity 1.017 (1.001-1.035); Urine Urobilinogen < 2.0 EU/DL (0.2-1.0)
[2020-06-24 05:38] LABS: Basophils % 0.1 % (0.0-0.8); Hematocrit 36.3 VOL% (35.7-47.0); Hemoglobin 12.3 GM/DL (12.0-16.0); Immature Granulocytes % 0.5 %; Immature Granulocytes Absolute 0.04 #; Lymphocytes # 1.6 10*3/uL (1.4-4.0); Mean Corpuscular HGB Conc 33.9 GM/DL (32-36); Mean Corpuscular Volume 87.3 FL (87-102); Mean Platelet Volume 10.2 FL (9.6-12.0); Monocytes % 7.4 % (1.7-12.7); Platelet Count 213 T/CUMM (130-400); Red Blood Count 4.16 MC/CUMM (3.8-5.5); Red Cell Distribution Width 12.5 % (9.3-17.3); White Blood Count 8.5 T/CUMM (4-12)
[2020-06-24] MEDS ORDERED: ACETAMINOPHEN 500 MG TABLET PO STA (05:48)
[2020-06-24 05:59] LABS: Albumin 3.5 G/DL (3.4-5.0); Bilirubin,Total 0.6 MG/DL (0.2-1.0); Calcium 8.8 MG/DL (8.5-10.1); Osmolality,Calculated 271.5 MOS/KG (273-304); Total Protein 8.4 G/DL (6.4-8.3)
[2020-06-24 06:40] LABS: Anisocytosis 1+; Band Neutrophils 7 % (0-10); Lymphocytes 17 % (20-55); Nucleated Red Blood Cells 1 (0-5); Platelet Estimate Normal; Segmented Neutrophils 69 % (50-85); Total Cells Counted 100
[2020-06-24 06:41] LABS: Poikilocytosis Slight
[2020-06-24 06:52] LABS: Ferritin 510.4 ng/ml (8-252)
[2020-06-24] MEDS ORDERED: cefTRIAXone 1,000 MG in SODIUM CHLORIDE 0.9% 100 ML IV STA (07:14)
[2020-06-24] MEDS ORDERED: DEXAMETHASONE 4 MG/1 ML VIAL IV STA (08:26)
[2020-06-24] MEDS: SODIUM CHLORIDE 0.45% 1,000 ML IV SCH ×2 (08:46→21:41)
[2020-06-24] MEDS: DOCUSATE SODIUM 100 MG CAPSULE PO SCH ×2 (08:46→21:42)
[2020-06-24] MEDS: ENOXAPARIN 40 MG/0.4 ML SYRINGE SUBCUT SCH (08:46)
[2020-06-24] MEDS: PANTOPRAZOLE 40 MG TABLET PO SCH (08:46)
[2020-06-24] MEDS: HYDROmorphone 2 MG/1 ML VIAL IV PRN (11:55)
[2020-06-24] MEDS ORDERED: DEXTROSE 50% 25 GM/50 ML VIAL IV PRN (21:40)
[2020-06-24] MEDS ORDERED: GLUCAGON 1 MG VIAL IM PRN (21:40)
[2020-06-24] MEDS: INSULIN REGULAR 100 UNIT/ML SUBCUT SCH (23:03)
[2020-06-24] MEDS: methylPREDNISolone SOD SUC 40 MG/1 ML VIAL IV SCH (23:03)
[2020-06-25] MEDS: traMADol 50 MG TABLET PO PRN ×2 (03:07→22:46)
[2020-06-25 06:06] LABS: Albumin 3.2 G/DL (3.4-5.0); Bilirubin,Total 0.8 MG/DL (0.2-1.0); Calcium 9.2 MG/DL (8.5-10.1); Osmolality,Calculated 276.4 MOS/KG (273-304); Total Protein 8.1 G/DL (6.4-8.3)
[2020-06-25] MEDS: ACETAMINOPHEN 325 MG TABLET PO PRN ×2 (07:29→21:20)
[2020-06-25] MEDS: ENOXAPARIN 40 MG/0.4 ML SYRINGE SUBCUT SCH (08:50)
[2020-06-25] MEDS: INSULIN REGULAR 100 UNIT/ML SUBCUT SCH ×4 (08:50→21:20)
[2020-06-25] MEDS: DOCUSATE SODIUM 100 MG CAPSULE PO SCH ×2 (09:20→21:20)
[2020-06-25] MEDS: DULoxetine 30 MG CAPSULE PO SCH (09:20)
[2020-06-25] MEDS: amLODIPine 10 MG TABLET PO SCH (09:20)
[2020-06-25] MEDS: PANTOPRAZOLE 40 MG TABLET PO SCH (09:21)
[2020-06-25] MEDS: methylPREDNISolone SOD SUC 40 MG/1 ML VIAL IV SCH ×2 (09:21→21:17)
[2020-06-25] MEDS: HYDROmorphone 2 MG/1 ML VIAL IV PRN ×2 (09:22→15:54)
[2020-06-25] MEDS: cefTRIAXone 1,000 MG in SODIUM CHLORIDE 0.9% 100 ML IV SCH (09:23)
[2020-06-25] MEDS: SODIUM CHLORIDE 0.45% 1,000 ML IV SCH ×2 (10:19→23:59)
[2020-06-25] MEDS: GABAPENTIN 600 MG TABLET PO SCH (12:22)
[2020-06-26] MEDS: DOCUSATE SODIUM 100 MG CAPSULE PO SCH ×2 (08:11→22:07)
[2020-06-26] MEDS: cefTRIAXone 1,000 MG in SODIUM CHLORIDE 0.9% 100 ML IV SCH (08:11)
[2020-06-26] MEDS: DULoxetine 30 MG CAPSULE PO SCH (08:11)
[2020-06-26] MEDS: amLODIPine 10 MG TABLET PO SCH (08:11)
[2020-06-26] MEDS: ENOXAPARIN 40 MG/0.4 ML SYRINGE SUBCUT SCH (08:11)
[2020-06-26] MEDS: PANTOPRAZOLE 40 MG TABLET PO SCH (08:11)
[2020-06-26] MEDS: INSULIN REGULAR 100 UNIT/ML SUBCUT SCH ×4 (08:12→22:06)
[2020-06-26] MEDS: methylPREDNISolone SOD SUC 40 MG/1 ML VIAL IV SCH (08:13)
[2020-06-26] MEDS ORDERED: AZITHROMYCIN 250 MG TABLET PO ONE (09:00)
[2020-06-26] MEDS: ONDANSETRON 4 MG/2 ML VIAL IV PRN (10:38)
[2020-06-26] MEDS: GABAPENTIN 600 MG TABLET PO SCH (11:53)
[2020-06-26] MEDS ORDERED: GLATIRAMER 40 MG SUBCUT SCH (12:00)
[2020-06-26] MEDS: ACETAMINOPHEN 325 MG TABLET PO PRN (13:15)
[2020-06-26] MEDS: SODIUM CHLORIDE 0.45% 1,000 ML IV SCH (13:54)
[2020-06-26] MEDS: DEXAMETHASONE 4 MG/1 ML VIAL IV SCH ×2 (16:14→21:59)
[2020-06-26] MEDS ORDERED: REMDESIVIR 200 MG in SODIUM CHLORIDE 0.9% 210 ML IV ONE (17:00)
[2020-06-26] MEDS ORDERED: INSULIN REGULAR 100 UNIT/ML SUBCUT STA (20:06)
[2020-06-26] MEDS: traMADol 50 MG TABLET PO PRN (20:28)
[2020-06-26] MEDS: SIMVASTATIN 40 MG TABLET PO SCH (22:07)
[2020-06-26] MEDS: BENZONATATE 100 MG CAPSULE PO SCH (22:07)
[2020-06-27] MEDS: SODIUM CHLORIDE 0.45% 1,000 ML IV SCH ×3 (02:00→15:08)
[2020-06-27] MEDS: ACETAMINOPHEN 325 MG TABLET PO PRN (02:17)
[2020-06-27] MEDS: DEXAMETHASONE 4 MG/1 ML VIAL IV SCH ×4 (05:20→20:53)
[2020-06-27 06:12] LABS: Basophils % 0.2 % (0.0-0.8); Hematocrit 31.5 VOL% (35.7-47.0); Immature Granulocytes % 1.2 %; Immature Granulocytes Absolute 0.19 #; Lymphocytes # 1.2 10*3/uL (1.4-4.0); Mean Corpuscular HGB Conc 34.9 GM/DL (32-36); Mean Corpuscular Volume 83.8 FL (87-102); Mean Platelet Volume 10.4 FL (9.6-12.0); Monocytes % 4.8 % (1.7-12.7); Neutrophils % 85.8 % (38.7-73.9); Red Blood Count 3.76 MC/CUMM (3.8-5.5); Red Cell Distribution Width 12.6 % (9.3-17.3)
[2020-06-27 06:24] LABS: Platelet Count 354 T/CUMM (130-400); White Blood Count 15.2 T/CUMM (4-12)
[2020-06-27 06:35] LABS: Band Neutrophils 1 % (0-10); Hypochromasia 1+; Lymphocytes 5 % (20-55); Microcytosis Slight; Platelet Estimate Adequate; Segmented Neutrophils 85 % (50-85); Total Cells Counted 100
[2020-06-27 06:51] LABS: Albumin 2.6 G/DL (3.4-5.0); Bilirubin,Total 0.8 MG/DL (0.2-1.0); Osmolality,Calculated 271.4 MOS/KG (273-304); Risk Ratio 4.4; Thyroid Stimulating Hormone 0.423 uIU/ml (0.358-3.74); Total Protein 7.4 G/DL (6.4-8.3)
[2020-06-27] MEDS: INSULIN REGULAR 100 UNIT/ML SUBCUT SCH ×4 (08:06→20:53)
[2020-06-27] MEDS: amLODIPine 10 MG TABLET PO SCH (08:16)
[2020-06-27] MEDS: AZITHROMYCIN 250 MG TABLET PO SCH (08:16)
[2020-06-27] MEDS: BENZONATATE 100 MG CAPSULE PO SCH ×3 (08:16→20:53)
[2020-06-27] MEDS: DOCUSATE SODIUM 100 MG CAPSULE PO SCH ×2 (08:16→20:53)
[2020-06-27] MEDS: ENOXAPARIN 40 MG/0.4 ML SYRINGE SUBCUT SCH (08:17)
[2020-06-27] MEDS: DULoxetine 30 MG CAPSULE PO SCH (08:17)
[2020-06-27] MEDS: cefTRIAXone 1,000 MG in SODIUM CHLORIDE 0.9% 100 ML IV SCH (08:17)
[2020-06-27] MEDS: PANTOPRAZOLE 40 MG TABLET PO SCH (08:17)
[2020-06-27] MEDS: ALPRAZolam 0.5 MG TABLET PO PRN ×2 (11:32→20:54)
[2020-06-27] MEDS: GABAPENTIN 600 MG TABLET PO SCH (11:32)
[2020-06-27] MEDS ORDERED: ALPRAZolam 0.5 MG TABLET PO ONE (14:21)
[2020-06-27] MEDS: traMADol 50 MG TABLET PO PRN (16:59)
[2020-06-27] MEDS: REMDESIVIR 100 MG in SODIUM CHLORIDE 0.9% 230 ML IV SCH (17:01)
[2020-06-27] MEDS: SIMVASTATIN 40 MG TABLET PO SCH (20:54)
[2020-06-28] MEDS: SODIUM CHLORIDE 0.45% 1,000 ML IV SCH ×4 (00:24→17:29)
[2020-06-28] MEDS: DEXAMETHASONE 4 MG/1 ML VIAL IV SCH ×4 (03:46→21:46)
[2020-06-28] MEDS: traMADol 50 MG TABLET PO PRN ×2 (03:47→21:44)
[2020-06-28 05:48] LABS: Basophils % 0.1 % (0.0-0.8); Hematocrit 32.7 VOL% (35.7-47.0); Hemoglobin 11.2 GM/DL (12.0-16.0); Immature Granulocytes % 1.9 %; Immature Granulocytes Absolute 0.29 #; Lymphocytes # 1.5 10*3/uL (1.4-4.0); Lymphocytes % 9.6 % (21.3-54.2); Mean Corpuscular HGB Conc 34.3 GM/DL (32-36); Mean Corpuscular Volume 85.4 FL (87-102); Mean Platelet Volume 10.1 FL (9.6-12.0); Monocytes % 6.3 % (1.7-12.7); Neutrophils % 82.1 % (38.7-73.9); Platelet Count 397 T/CUMM (130-400); Red Blood Count 3.83 MC/CUMM (3.8-5.5); Red Cell Distribution Width 12.7 % (9.3-17.3); White Blood Count 15.1 T/CUMM (4-12)
[2020-06-28 06:18] LABS: Hypochromasia 1+; Lymphocytes 11 % (20-55); Microcytosis Slight; Segmented Neutrophils 87 % (50-85); Target Cells Slight; Total Cells Counted 100
[2020-06-28 06:31] LABS: Albumin 2.5 G/DL (3.4-5.0); Bilirubin,Total 1.7 MG/DL (0.2-1.0); Osmolality,Calculated 277.2 MOS/KG (273-304); Total Protein 7.2 G/DL (6.4-8.3)
[2020-06-28] MEDS: INSULIN REGULAR 100 UNIT/ML SUBCUT SCH ×4 (08:24→21:45)
[2020-06-28] MEDS: amLODIPine 10 MG TABLET PO SCH (08:25)
[2020-06-28] MEDS: PANTOPRAZOLE 40 MG TABLET PO SCH (08:25)
[2020-06-28] MEDS: DULoxetine 30 MG CAPSULE PO SCH (08:25)
[2020-06-28] MEDS: AZITHROMYCIN 250 MG TABLET PO SCH (08:25)
[2020-06-28] MEDS: BENZONATATE 100 MG CAPSULE PO SCH ×3 (08:27→21:44)
[2020-06-28] MEDS: DOCUSATE SODIUM 100 MG CAPSULE PO SCH ×2 (08:27→21:43)
[2020-06-28] MEDS: cefTRIAXone 1,000 MG in SODIUM CHLORIDE 0.9% 100 ML IV SCH (08:28)
[2020-06-28] MEDS: ENOXAPARIN 60 MG/0.6 ML SYRINGE SUBCUT SCH ×2 (08:28→21:45)
[2020-06-28] MEDS: GABAPENTIN 600 MG TABLET PO SCH (11:26)
[2020-06-28] MEDS: REMDESIVIR 100 MG in SODIUM CHLORIDE 0.9% 230 ML IV SCH (16:15)
[2020-06-28] MEDS: ACETAMINOPHEN 325 MG TABLET PO PRN (16:38)
[2020-06-28] MEDS: ALPRAZolam 0.5 MG TABLET PO PRN (21:44)
[2020-06-28] MEDS: SIMVASTATIN 40 MG TABLET PO SCH (21:44)
[2020-06-29] MEDS: DEXAMETHASONE 4 MG/1 ML VIAL IV SCH ×4 (02:15→20:40)
[2020-06-29] MEDS: ACETAMINOPHEN 325 MG TABLET PO PRN ×2 (05:19→20:40)
[2020-06-29 06:21] LABS: Basophils # 0.1 10*3/uL (0.0-0.2); Basophils % 0.4 % (0.0-0.8); Hematocrit 33.7 VOL% (35.7-47.0); Hemoglobin 11.3 GM/DL (12.0-16.0); Immature Granulocytes % 4.2 %; Lymphocytes # 1.8 10*3/uL (1.4-4.0); Lymphocytes % 12.3 % (21.3-54.2); Mean Corpuscular HGB Conc 33.5 GM/DL (32-36); Mean Corpuscular Volume 86.6 FL (87-102); Mean Platelet Volume 10.3 FL (9.6-12.0); Monocytes % 7.1 % (1.7-12.7); NRBC # 0.03 10*3/uL; Platelet Count 500 T/CUMM (130-400); Red Blood Count 3.89 MC/CUMM (3.8-5.5); Red Cell Distribution Width 12.8 % (9.3-17.3); White Blood Count 14.3 T/CUMM (4-12)
[2020-06-29 06:48] LABS: Lymphocytes 17 % (20-55); Segmented Neutrophils 77 % (50-85); Total Cells Counted 100
[2020-06-29 06:49] LABS: Hypochromasia 1+; Microcytosis Slight; Platelet Estimate Increased
[2020-06-29 06:50] LABS: Calcium 8.8 MG/DL (8.5-10.1); Osmolality,Calculated 277.2 MOS/KG (273-304)
[2020-06-29] MEDS: ENOXAPARIN 60 MG/0.6 ML SYRINGE SUBCUT SCH ×2 (08:28→20:39)
[2020-06-29] MEDS: cefTRIAXone 1,000 MG in SODIUM CHLORIDE 0.9% 100 ML IV SCH (08:28)
[2020-06-29] MEDS: INSULIN REGULAR 100 UNIT/ML SUBCUT SCH ×4 (08:29→20:40)
[2020-06-29] MEDS: DULoxetine 30 MG CAPSULE PO SCH (08:29)
[2020-06-29] MEDS: DOCUSATE SODIUM 100 MG CAPSULE PO SCH ×2 (08:29→20:38)
[2020-06-29] MEDS: amLODIPine 10 MG TABLET PO SCH (08:29)
[2020-06-29] MEDS: traMADol 50 MG TABLET PO PRN ×2 (08:29→16:27)
[2020-06-29] MEDS: BENZONATATE 100 MG CAPSULE PO SCH ×3 (08:29→20:40)
[2020-06-29] MEDS: PANTOPRAZOLE 40 MG TABLET PO SCH (08:29)
[2020-06-29] MEDS: SODIUM CHLORIDE 0.45% 1,000 ML IV SCH (08:30)
[2020-06-29] MEDS: AZITHROMYCIN 250 MG TABLET PO SCH (08:30)
[2020-06-29] MEDS: ALPRAZolam 0.5 MG TABLET PO PRN ×2 (10:10→20:40)
[2020-06-29] MEDS ORDERED: NEOMYCIN/POLYMYXIN/BACITRACIN OINT 0.9 GM PACK TOP PRN (11:48)
[2020-06-29] MEDS: GABAPENTIN 600 MG TABLET PO SCH (12:11)
[2020-06-29] MEDS ORDERED: NEOMYCIN/POLYMYXIN/BACITRACIN OINT 28.4 GM TUBE TOP PRN (14:30)
[2020-06-29] MEDS: REMDESIVIR 100 MG in SODIUM CHLORIDE 0.9% 230 ML IV SCH (16:26)
[2020-06-29] MEDS: SIMVASTATIN 40 MG TABLET PO SCH (20:40)
[2020-06-30] MEDS: traMADol 50 MG TABLET PO PRN (00:15)
[2020-06-30] MEDS: ALPRAZolam 0.5 MG TABLET PO PRN ×2 (02:59→13:03)
[2020-06-30] MEDS: DEXAMETHASONE 4 MG/1 ML VIAL IV SCH ×4 (02:59→20:51)
[2020-06-30] MEDS: SODIUM CHLORIDE 0.45% 1,000 ML IV SCH ×2 (05:00→20:50)
[2020-06-30 07:09] LABS: Basophils # 0.1 10*3/uL (0.0-0.2); Basophils % 0.7 % (0.0-0.8); Hematocrit 33.5 VOL% (35.7-47.0); Hemoglobin 11.6 GM/DL (12.0-16.0); Immature Granulocytes Absolute 0.91 #; Lymphocytes # 1.9 10*3/uL (1.4-4.0); Lymphocytes % 12.5 % (21.3-54.2); Mean Corpuscular HGB Conc 34.6 GM/DL (32-36); Mean Corpuscular Volume 84.6 FL (87-102); Mean Platelet Volume 10.3 FL (9.6-12.0); Monocytes % 8.4 % (1.7-12.7); NRBC # 0.03 10*3/uL; Neutrophils % 72.4 % (38.7-73.9); Platelet Count 532 T/CUMM (130-400); Red Blood Count 3.96 MC/CUMM (3.8-5.5); Red Cell Distribution Width 12.9 % (9.3-17.3); White Blood Count 15.1 T/CUMM (4-12)
[2020-06-30 07:31] LABS: Calcium 9.2 MG/DL (8.5-10.1); Osmolality,Calculated 279.1 MOS/KG (273-304)
[2020-06-30 07:50] LABS: Hypochromasia 1+; Lymphocytes 13 % (20-55); Microcytosis 1+; Platelet Estimate Adequate; Segmented Neutrophils 78 % (50-85); Total Cells Counted 100
[2020-06-30] MEDS: BENZONATATE 100 MG CAPSULE PO SCH ×3 (08:19→20:51)
[2020-06-30] MEDS: AZITHROMYCIN 250 MG TABLET PO SCH (08:19)
[2020-06-30] MEDS: DOCUSATE SODIUM 100 MG CAPSULE PO SCH ×2 (08:19→20:51)
[2020-06-30] MEDS: DULoxetine 30 MG CAPSULE PO SCH (08:19)
[2020-06-30] MEDS: amLODIPine 10 MG TABLET PO SCH (08:20)
[2020-06-30] MEDS: ENOXAPARIN 60 MG/0.6 ML SYRINGE SUBCUT SCH ×2 (08:20→20:52)
[2020-06-30] MEDS: PANTOPRAZOLE 40 MG TABLET PO SCH (08:20)
[2020-06-30] MEDS: cefTRIAXone 1,000 MG in SYRINGE 1 EACH IV SCH (08:24)
[2020-06-30] MEDS: INSULIN REGULAR 100 UNIT/ML SUBCUT SCH ×4 (08:53→20:51)
[2020-06-30] MEDS: ESCITALOPRAM 10 MG TABLET PO SCH (11:26)
[2020-06-30] MEDS: GABAPENTIN 600 MG TABLET PO SCH (11:26)
[2020-06-30] MEDS: REMDESIVIR 100 MG in SODIUM CHLORIDE 0.9% 230 ML IV SCH (17:07)
[2020-06-30] MEDS: SIMVASTATIN 40 MG TABLET PO SCH (20:51)
[2020-07-01] MEDS: DEXAMETHASONE 4 MG/1 ML VIAL IV SCH ×4 (02:50→20:19)
[2020-07-01] MEDS: traMADol 50 MG TABLET PO PRN (05:25)
[2020-07-01 06:26] LABS: Basophils # 0.1 10*3/uL (0.0-0.2); Basophils % 0.4 % (0.0-0.8); Hematocrit 34.3 VOL% (35.7-47.0); Immature Granulocytes % 6.9 %; Lymphocytes # 1.4 10*3/uL (1.4-4.0); Mean Corpuscular Volume 85.3 FL (87-102); Mean Platelet Volume 9.6 FL (9.6-12.0); Monocytes % 7.6 % (1.7-12.7); NRBC # 0.02 10*3/uL; Neutrophils % 74.1 % (38.7-73.9); Platelet Count 590 T/CUMM (130-400); Red Blood Count 4.02 MC/CUMM (3.8-5.5); Red Cell Distribution Width 12.8 % (9.3-17.3)
[2020-07-01 06:48] LABS: Calcium 9.2 MG/DL (8.5-10.1); Osmolality,Calculated 276.2 MOS/KG (273-304)
[2020-07-01 07:04] LABS: Lymphocytes 10 % (20-55); Segmented Neutrophils 83 % (50-85); Total Cells Counted 100
[2020-07-01 07:05] LABS: Hypochromasia 1+
[2020-07-01 07:06] LABS: Microcytosis Slight
[2020-07-01] MEDS: INSULIN REGULAR 100 UNIT/ML SUBCUT SCH ×4 (07:35→20:21)
[2020-07-01] MEDS: DULoxetine 30 MG CAPSULE PO SCH (08:03)
[2020-07-01] MEDS: amLODIPine 10 MG TABLET PO SCH (08:04)
[2020-07-01] MEDS: PANTOPRAZOLE 40 MG TABLET PO SCH (08:04)
[2020-07-01] MEDS: BENZONATATE 100 MG CAPSULE PO SCH ×3 (08:04→20:20)
[2020-07-01] MEDS: ESCITALOPRAM 10 MG TABLET PO SCH (08:04)
[2020-07-01] MEDS: ENOXAPARIN 60 MG/0.6 ML SYRINGE SUBCUT SCH ×2 (08:04→20:20)
[2020-07-01] MEDS: DOCUSATE SODIUM 100 MG CAPSULE PO SCH ×2 (08:04→20:20)
[2020-07-01] MEDS: cefTRIAXone 1,000 MG in SYRINGE 1 EACH IV SCH (08:05)
[2020-07-01] MEDS: SODIUM CHLORIDE 0.45% 1,000 ML IV SCH ×4 (09:28→20:26)
[2020-07-01] MEDS: GABAPENTIN 600 MG TABLET PO SCH (11:20)
[2020-07-01] MEDS: ALPRAZolam 0.5 MG TABLET PO PRN (16:17)
[2020-07-01] MEDS: SIMVASTATIN 40 MG TABLET PO SCH (20:20)
[2020-07-02] MEDS: SODIUM CHLORIDE 0.45% 1,000 ML IV SCH ×2 (01:51→14:10)
[2020-07-02] MEDS: DEXAMETHASONE 4 MG/1 ML VIAL IV SCH ×4 (03:03→21:23)
[2020-07-02] MEDS: traMADol 50 MG TABLET PO PRN (03:14)
[2020-07-02 05:37] LABS: Basophils # 0.1 10*3/uL (0.0-0.2); Basophils % 0.4 % (0.0-0.8); Hemoglobin 11.6 GM/DL (12.0-16.0); Immature Granulocytes % 7.1 %; Immature Granulocytes Absolute 0.97 #; Lymphocytes # 1.5 10*3/uL (1.4-4.0); Lymphocytes % 10.5 % (21.3-54.2); Mean Corpuscular HGB Conc 35.2 GM/DL (32-36); Mean Corpuscular Volume 83.5 FL (87-102); Mean Platelet Volume 9.4 FL (9.6-12.0); Monocytes % 8.5 % (1.7-12.7); NRBC # 0.02 10*3/uL; Neutrophils % 73.5 % (38.7-73.9); Platelet Count 556 T/CUMM (130-400); Red Blood Count 3.95 MC/CUMM (3.8-5.5); Red Cell Distribution Width 12.9 % (9.3-17.3); White Blood Count 13.8 T/CUMM (4-12)
[2020-07-02 06:12] LABS: Calcium 8.7 MG/DL (8.5-10.1); Osmolality,Calculated 274.4 MOS/KG (273-304)
[2020-07-02 06:34] LABS: Hypochromasia 1+; Lymphocytes 12 % (20-55); Myelocytes 1 %; Segmented Neutrophils 82 % (50-85); Total Cells Counted 100
[2020-07-02 06:35] LABS: Microcytosis 1+
[2020-07-02] MEDS: PANTOPRAZOLE 40 MG TABLET PO SCH (08:16)
[2020-07-02] MEDS: amLODIPine 10 MG TABLET PO SCH (08:16)
[2020-07-02] MEDS: ESCITALOPRAM 10 MG TABLET PO SCH (08:16)
[2020-07-02] MEDS: DULoxetine 30 MG CAPSULE PO SCH (08:16)
[2020-07-02] MEDS: BENZONATATE 100 MG CAPSULE PO SCH ×3 (08:16→21:23)
[2020-07-02] MEDS: DOCUSATE SODIUM 100 MG CAPSULE PO SCH ×2 (08:16→21:23)
[2020-07-02] MEDS: ENOXAPARIN 60 MG/0.6 ML SYRINGE SUBCUT SCH ×2 (08:17→21:24)
[2020-07-02] MEDS: cefTRIAXone 1,000 MG in SYRINGE 1 EACH IV SCH (08:18)
[2020-07-02] MEDS: INSULIN REGULAR 100 UNIT/ML SUBCUT SCH ×4 (09:23→21:24)
[2020-07-02] MEDS ORDERED: traMADol 50 MG TABLET PO PRN (11:18)
[2020-07-02] MEDS: GABAPENTIN 600 MG TABLET PO SCH (11:53)
[2020-07-02] MEDS: INDAPAMIDE 2.5 MG TABLET PO SCH (16:23)
[2020-07-02] MEDS: SIMVASTATIN 40 MG TABLET PO SCH (21:23)
[2020-07-03] MEDS: SODIUM CHLORIDE 0.45% 1,000 ML IV SCH ×3 (00:46→18:07)
[2020-07-03] MEDS: DEXAMETHASONE 4 MG/1 ML VIAL IV SCH ×4 (03:30→20:13)
[2020-07-03 06:56] LABS: Basophils % 0.4 % (0.0-0.8); Eosinophils % 0.1 % (0.00-10.9); Hemoglobin 12.1 GM/DL (12.0-16.0); Immature Granulocytes % 6.8 %; Immature Granulocytes Absolute 0.74 #; Lymphocytes % 8.9 % (21.3-54.2); Mean Corpuscular HGB Conc 33.6 GM/DL (32-36); Mean Corpuscular Volume 87.2 FL (87-102); Neutrophils % 76.8 % (38.7-73.9); Platelet Count 473 T/CUMM (130-400); Red Blood Count 4.13 MC/CUMM (3.8-5.5); Red Cell Distribution Width 13.2 % (9.3-17.3); White Blood Count 10.9 T/CUMM (4-12)
[2020-07-03 07:27] LABS: Calcium 8.9 MG/DL (8.5-10.1); Osmolality,Calculated 270.7 MOS/KG (273-304)
[2020-07-03 07:42] LABS: Band Neutrophils 1 % (0-10); Lymphocytes 10 % (20-55); Metamyelocytes 2 %; Myelocytes 2 %; Nucleated Red Blood Cells 1 (0-5); Segmented Neutrophils 81 % (50-85); Total Cells Counted 100
[2020-07-03 07:43] LABS: Anisocytosis Slight; Platelet Estimate Normal
[2020-07-03] MEDS: INSULIN REGULAR 100 UNIT/ML SUBCUT SCH ×4 (09:22→20:14)
[2020-07-03] MEDS: INDAPAMIDE 2.5 MG TABLET PO SCH (09:23)
[2020-07-03] MEDS: DULoxetine 30 MG CAPSULE PO SCH (09:23)
[2020-07-03] MEDS: DOCUSATE SODIUM 100 MG CAPSULE PO SCH ×2 (09:24→20:13)
[2020-07-03] MEDS: BENZONATATE 100 MG CAPSULE PO SCH ×3 (09:24→20:13)
[2020-07-03] MEDS: amLODIPine 10 MG TABLET PO SCH (09:24)
[2020-07-03] MEDS: ESCITALOPRAM 10 MG TABLET PO SCH (09:24)
[2020-07-03] MEDS: ENOXAPARIN 60 MG/0.6 ML SYRINGE SUBCUT SCH ×2 (09:24→20:14)
[2020-07-03] MEDS: PANTOPRAZOLE 40 MG TABLET PO SCH (09:25)
[2020-07-03] MEDS: cefTRIAXone 1,000 MG in SYRINGE 1 EACH IV SCH (09:25)
[2020-07-03] MEDS: ACETAMINOPHEN 325 MG TABLET PO PRN (09:25)
[2020-07-03] MEDS: ALPRAZolam 0.5 MG TABLET PO PRN ×2 (11:37→20:13)
[2020-07-03] MEDS: GABAPENTIN 600 MG TABLET PO SCH (12:32)
[2020-07-03] MEDS: SIMVASTATIN 40 MG TABLET PO SCH (20:13)
[2020-07-04] MEDS: DEXAMETHASONE 4 MG/1 ML VIAL IV SCH ×2 (02:38→21:22)
[2020-07-04] MEDS: SODIUM CHLORIDE 0.45% 1,000 ML IV SCH (04:08)
[2020-07-04 06:47] LABS: Basophils % 0.3 % (0.0-0.8); Hematocrit 33.8 VOL% (35.7-47.0); Hemoglobin 11.4 GM/DL (12.0-16.0); Immature Granulocytes % 5.4 %; Immature Granulocytes Absolute 0.64 #; Lymphocytes # 0.9 10*3/uL (1.4-4.0); Lymphocytes % 7.8 % (21.3-54.2); Mean Corpuscular HGB Conc 33.7 GM/DL (32-36); Mean Corpuscular Volume 85.1 FL (87-102); Mean Platelet Volume 9.6 FL (9.6-12.0); Monocytes % 9.8 % (1.7-12.7); Neutrophils % 76.7 % (38.7-73.9); Platelet Count 532 T/CUMM (130-400); Red Blood Count 3.97 MC/CUMM (3.8-5.5); Red Cell Distribution Width 12.9 % (9.3-17.3); White Blood Count 11.9 T/CUMM (4-12)
[2020-07-04 06:53] LABS: Calcium 9.2 MG/DL (8.5-10.1); Osmolality,Calculated 272.5 MOS/KG (273-304)
[2020-07-04 07:40] LABS: Lymphocytes 8 % (20-55); Nucleated Red Blood Cells 1 (0-5); Segmented Neutrophils 82 % (50-85); Total Cells Counted 100
[2020-07-04 07:41] LABS: Anisocytosis 1+; Platelet Estimate Increased; Smudge Cells Few
[2020-07-04] MEDS: INSULIN REGULAR 100 UNIT/ML SUBCUT SCH ×4 (08:14→21:24)
[2020-07-04] MEDS: DULoxetine 30 MG CAPSULE PO SCH (08:54)
[2020-07-04] MEDS: DOCUSATE SODIUM 100 MG CAPSULE PO SCH ×2 (08:54→21:23)
[2020-07-04] MEDS: ESCITALOPRAM 10 MG TABLET PO SCH (08:55)
[2020-07-04] MEDS: amLODIPine 10 MG TABLET PO SCH (08:55)
[2020-07-04] MEDS: INDAPAMIDE 2.5 MG TABLET PO SCH (08:55)
[2020-07-04] MEDS: ENOXAPARIN 60 MG/0.6 ML SYRINGE SUBCUT SCH ×2 (08:55→22:10)
[2020-07-04] MEDS: PANTOPRAZOLE 40 MG TABLET PO SCH (08:55)
[2020-07-04] MEDS: cefTRIAXone 1,000 MG in SYRINGE 1 EACH IV SCH (08:55)
[2020-07-04] MEDS: BENZONATATE 100 MG CAPSULE PO SCH ×3 (08:56→21:19)
[2020-07-04] MEDS: ALPRAZolam 0.5 MG TABLET PO PRN (08:56)
[2020-07-04] MEDS: GABAPENTIN 600 MG TABLET PO SCH (12:39)
[2020-07-04] MEDS: SIMVASTATIN 40 MG TABLET PO SCH (21:19)
[2020-07-04 22:53] LABS: ABG Base Excess 0.2 MMOL/L (-2.5-2.5); ABG HCO3 24.4 MMOL/L (20-26); ABG Oxygen Saturation 87.4 % (95-100); ABG PCO2 34.4 MM HG (35-48); ABG PH 7.445 (7.35-7.45); ABG PO2 56.4 MM HG (80-95); ABG TCO2 20.7 MMOL/L (23-27)
[2020-07-05 04:23] LABS: Basophils % 0.2 % (0.0-0.8); Eosinophils % 0.1 % (0.00-10.9); Hematocrit 34.4 VOL% (35.7-47.0); Hemoglobin 12.3 GM/DL (12.0-16.0); Immature Granulocytes % 2.7 %; Immature Granulocytes Absolute 0.31 #; Lymphocytes # 1.2 10*3/uL (1.4-4.0); Lymphocytes % 10.1 % (21.3-54.2); Mean Corpuscular HGB Conc 35.8 GM/DL (32-36); Mean Corpuscular Volume 82.7 FL (87-102); Mean Platelet Volume 9.4 FL (9.6-12.0); Monocytes % 8.7 % (1.7-12.7); Neutrophils % 78.2 % (38.7-73.9); Platelet Count 534 T/CUMM (130-400); Red Blood Count 4.16 MC/CUMM (3.8-5.5); Red Cell Distribution Width 13.1 % (9.3-17.3); White Blood Count 11.4 T/CUMM (4-12)
[2020-07-05 04:59] LABS: Calcium 9.5 MG/DL (8.5-10.1); Osmolality,Calculated 274.4 MOS/KG (273-304)
[2020-07-05] MEDS: INSULIN REGULAR 100 UNIT/ML SUBCUT SCH ×4 (08:20→21:27)
[2020-07-05] MEDS ORDERED: CLORAZEPATE 3.75 MG TABLET PO PRN (09:17)
[2020-07-05] MEDS: BENZONATATE 100 MG CAPSULE PO SCH ×3 (09:31→20:49)
[2020-07-05] MEDS: INDAPAMIDE 2.5 MG TABLET PO SCH (09:31)
[2020-07-05] MEDS: amLODIPine 10 MG TABLET PO SCH (09:32)
[2020-07-05] MEDS: ESCITALOPRAM 10 MG TABLET PO SCH (09:32)
[2020-07-05] MEDS: ENOXAPARIN 60 MG/0.6 ML SYRINGE SUBCUT SCH ×2 (09:32→20:49)
[2020-07-05] MEDS: DEXAMETHASONE 4 MG/1 ML VIAL IV SCH ×2 (09:32→20:50)
[2020-07-05] MEDS: DULoxetine 30 MG CAPSULE PO SCH (09:32)
[2020-07-05] MEDS: PANTOPRAZOLE 40 MG TABLET PO SCH (09:32)
[2020-07-05] MEDS: DOCUSATE SODIUM 100 MG CAPSULE PO SCH ×2 (09:32→20:49)
[2020-07-05] MEDS: MULTIVITAMIN (CENTRUM) TABLET PO SCH (09:32)
[2020-07-05] MEDS: cefTRIAXone 1,000 MG in SYRINGE 1 EACH IV SCH (09:33)
[2020-07-05] MEDS: GABAPENTIN 600 MG TABLET PO SCH (13:10)
[2020-07-05] MEDS ORDERED: SODIUM CHLORIDE 0.9% 1,000 ML IV PRN (14:04)
[2020-07-05] MEDS ORDERED: FUROSEMIDE 40 MG/4 ML VIAL IV ONE (15:10)
[2020-07-05] MEDS: SIMVASTATIN 40 MG TABLET PO SCH (20:49)
[2020-07-06 03:49] LABS: ABG Base Excess 0.7 MMOL/L (-2.5-2.5); ABG Oxygen Saturation 96.1 % (95-100); ABG PCO2 37.8 MM HG (35-48); ABG PH 7.427 (7.35-7.45); ABG PO2 83.2 MM HG (80-95); ABG TCO2 21.8 MMOL/L (23-27)
[2020-07-06 04:39] LABS: Basophils % 0.2 % (0.0-0.8); Eosinophils % 0.1 % (0.00-10.9); Hemoglobin 13.4 GM/DL (12.0-16.0); Immature Granulocytes % 1.8 %; Immature Granulocytes Absolute 0.18 #; Lymphocytes # 0.9 10*3/uL (1.4-4.0); Lymphocytes % 9.6 % (21.3-54.2); Mean Corpuscular HGB Conc 34.4 GM/DL (32-36); Mean Corpuscular Volume 84.6 FL (87-102); Mean Platelet Volume 9.5 FL (9.6-12.0); Monocytes % 8.9 % (1.7-12.7); Neutrophils % 79.4 % (38.7-73.9); Platelet Count 535 T/CUMM (130-400); Red Blood Count 4.61 MC/CUMM (3.8-5.5); Red Cell Distribution Width 13.2 % (9.3-17.3); White Blood Count 9.7 T/CUMM (4-12)
[2020-07-06 05:00] LABS: Albumin 2.9 G/DL (3.4-5.0); Bilirubin,Total 1.5 MG/DL (0.2-1.0); Calcium 9.3 MG/DL (8.5-10.1); Osmolality,Calculated 279.4 MOS/KG (273-304)
[2020-07-06] MEDS: ESCITALOPRAM 10 MG TABLET PO SCH (09:14)
[2020-07-06] MEDS: INDAPAMIDE 2.5 MG TABLET PO SCH (09:14)
[2020-07-06] MEDS: PANTOPRAZOLE 40 MG TABLET PO SCH (09:14)
[2020-07-06] MEDS: MULTIVITAMIN (CENTRUM) TABLET PO SCH (09:14)
[2020-07-06] MEDS: BENZONATATE 100 MG CAPSULE PO SCH ×3 (09:14→20:51)
[2020-07-06] MEDS: DULoxetine 30 MG CAPSULE PO SCH (09:14)
[2020-07-06] MEDS: amLODIPine 10 MG TABLET PO SCH (09:15)
[2020-07-06] MEDS: DEXAMETHASONE 4 MG/1 ML VIAL IV SCH ×2 (09:15→20:51)
[2020-07-06] MEDS: DOCUSATE SODIUM 100 MG CAPSULE PO SCH ×2 (09:15→20:51)
[2020-07-06] MEDS: ENOXAPARIN 60 MG/0.6 ML SYRINGE SUBCUT SCH (09:15)
[2020-07-06] MEDS: cefTRIAXone 1,000 MG in SYRINGE 1 EACH IV SCH (09:15)
[2020-07-06] MEDS: ONDANSETRON 4 MG/2 ML VIAL IV PRN (09:30)
[2020-07-06] MEDS ORDERED: MAGNESIUM HYDROXIDE SUSP 30 ML UDCUP PO PRN (10:11)
[2020-07-06] MEDS: INSULIN REGULAR 100 UNIT/ML SUBCUT SCH ×4 (10:13→20:51)
[2020-07-06] MEDS: POLYETHYLENE GLYCOL POWDER 17 GM PACK PO SCH (10:57)
[2020-07-06] MEDS: GABAPENTIN 600 MG TABLET PO SCH (11:45)
[2020-07-06] MEDS: CLORAZEPATE 7.5 MG TABLET PO PRN (15:10)
[2020-07-06] MEDS: SIMVASTATIN 40 MG TABLET PO SCH (20:51)
[2020-07-06] MEDS: ENOXAPARIN 40 MG/0.4 ML SYRINGE SUBCUT SCH (20:52)
[2020-07-07 04:38] LABS: Basophils % 0.1 % (0.0-0.8); Eosinophils % 0.1 % (0.00-10.9); Hematocrit 35.1 VOL% (35.7-47.0); Hemoglobin 12.2 GM/DL (12.0-16.0); Immature Granulocytes Absolute 0.12 #; Lymphocytes % 8.1 % (21.3-54.2); Mean Corpuscular HGB Conc 34.8 GM/DL (32-36); Mean Corpuscular Volume 84.8 FL (87-102); Mean Platelet Volume 9.6 FL (9.6-12.0); Monocytes % 6.8 % (1.7-12.7); Neutrophils % 83.9 % (38.7-73.9); Platelet Count 445 T/CUMM (130-400); Red Blood Count 4.14 MC/CUMM (3.8-5.5); Red Cell Distribution Width 13.2 % (9.3-17.3); White Blood Count 11.8 T/CUMM (4-12)
[2020-07-07 04:47] LABS: Calcium 9.9 MG/DL (8.5-10.1); Osmolality,Calculated 288.1 MOS/KG (273-304)
[2020-07-07] MEDS: INSULIN REGULAR 100 UNIT/ML SUBCUT SCH ×4 (07:32→20:26)
[2020-07-07] MEDS: DOCUSATE SODIUM 100 MG CAPSULE PO SCH ×2 (08:37→20:28)
[2020-07-07] MEDS: DULoxetine 30 MG CAPSULE PO SCH (08:37)
[2020-07-07] MEDS: ESCITALOPRAM 10 MG TABLET PO SCH (08:37)
[2020-07-07] MEDS: MULTIVITAMIN (CENTRUM) TABLET PO SCH (08:37)
[2020-07-07] MEDS: ENOXAPARIN 40 MG/0.4 ML SYRINGE SUBCUT SCH ×2 (08:38→20:28)
[2020-07-07] MEDS: BENZONATATE 100 MG CAPSULE PO SCH ×3 (08:38→20:28)
[2020-07-07] MEDS: amLODIPine 10 MG TABLET PO SCH (08:38)
[2020-07-07] MEDS: INDAPAMIDE 2.5 MG TABLET PO SCH (08:38)
[2020-07-07] MEDS: PANTOPRAZOLE 40 MG TABLET PO SCH (08:38)
[2020-07-07] MEDS: cefTRIAXone 1,000 MG in SYRINGE 1 EACH IV SCH (08:39)
[2020-07-07] MEDS: DEXAMETHASONE 4 MG/1 ML VIAL IV SCH ×2 (08:39→20:29)
[2020-07-07] MEDS: POLYETHYLENE GLYCOL POWDER 17 GM PACK PO SCH (08:40)
[2020-07-07] MEDS: GABAPENTIN 600 MG TABLET PO SCH (11:27)
[2020-07-07] MEDS ORDERED: BISACODYL 10 MG SUPP RECTAL ONE (11:31)
[2020-07-07] MEDS: SIMVASTATIN 40 MG TABLET PO SCH (20:28)
[2020-07-08] MEDS ORDERED: cloNIDine 0.1 MG/24 HR PATCH TRANSDERM SCH (09:00)
[2020-07-08] MEDS: DOCUSATE SODIUM 100 MG CAPSULE PO SCH ×2 (10:09→21:03)
[2020-07-08] MEDS: DULoxetine 30 MG CAPSULE PO SCH (10:09)
[2020-07-08] MEDS: MULTIVITAMIN (CENTRUM) TABLET PO SCH (10:09)
[2020-07-08] MEDS: DEXAMETHASONE 4 MG/1 ML VIAL IV SCH ×2 (10:09→21:23)
[2020-07-08] MEDS: INSULIN REGULAR 100 UNIT/ML SUBCUT SCH ×4 (10:09→21:07)
[2020-07-08] MEDS: ESCITALOPRAM 10 MG TABLET PO SCH (10:10)
[2020-07-08] MEDS: ENOXAPARIN 40 MG/0.4 ML SYRINGE SUBCUT SCH ×2 (10:10→21:05)
[2020-07-08] MEDS: amLODIPine 10 MG TABLET PO SCH (10:10)
[2020-07-08] MEDS: INDAPAMIDE 2.5 MG TABLET PO SCH (10:10)
[2020-07-08] MEDS: POLYETHYLENE GLYCOL POWDER 17 GM PACK PO SCH (10:10)
[2020-07-08] MEDS: BENZONATATE 100 MG CAPSULE PO SCH ×3 (10:10→21:03)
[2020-07-08] MEDS: PANTOPRAZOLE 40 MG TABLET PO SCH (10:10)
[2020-07-08 11:50] LABS: Basophils % 0.2 % (0.0-0.8); Eosinophils # 0.1 10*3/uL (0.0-0.87); Eosinophils % 1.3 % (0.00-10.9); Hematocrit 36.1 VOL% (35.7-47.0); Hemoglobin 12.6 GM/DL (12.0-16.0); Immature Granulocytes % 0.8 %; Immature Granulocytes Absolute 0.09 #; Lymphocytes # 1.4 10*3/uL (1.4-4.0); Lymphocytes % 12.2 % (21.3-54.2); Mean Corpuscular HGB Conc 34.9 GM/DL (32-36); Mean Corpuscular Volume 83.6 FL (87-102); Mean Platelet Volume 10.1 FL (9.6-12.0); Monocytes % 11.8 % (1.7-12.7); Neutrophils % 73.7 % (38.7-73.9); Platelet Count 473 T/CUMM (130-400); Red Blood Count 4.32 MC/CUMM (3.8-5.5); Red Cell Distribution Width 13.1 % (9.3-17.3); White Blood Count 11.2 T/CUMM (4-12)
[2020-07-08 12:14] LABS: Calcium 9.8 MG/DL (8.5-10.1); Osmolality,Calculated 286.1 MOS/KG (273-304)
[2020-07-08] MEDS: GABAPENTIN 600 MG TABLET PO SCH (14:34)
[2020-07-08] MEDS: SIMVASTATIN 40 MG TABLET PO SCH (21:03)
[2020-07-09 06:42] LABS: Basophils % 0.1 % (0.0-0.8); Eosinophils % 0.2 % (0.00-10.9); Hematocrit 35.8 VOL% (35.7-47.0); Hemoglobin 12.4 GM/DL (12.0-16.0); Immature Granulocytes % 0.3 %; Immature Granulocytes Absolute 0.03 #; Lymphocytes # 1.1 10*3/uL (1.4-4.0); Lymphocytes % 11.6 % (21.3-54.2); Mean Corpuscular HGB Conc 34.6 GM/DL (32-36); Mean Corpuscular Volume 83.8 FL (87-102); Mean Platelet Volume 10.2 FL (9.6-12.0); Monocytes % 10.3 % (1.7-12.7); Neutrophils % 77.5 % (38.7-73.9); Platelet Count 433 T/CUMM (130-400); Red Blood Count 4.27 MC/CUMM (3.8-5.5); Red Cell Distribution Width 13.2 % (9.3-17.3); White Blood Count 9.6 T/CUMM (4-12)
[2020-07-09 07:09] LABS: Calcium 9.7 MG/DL (8.5-10.1); Osmolality,Calculated 285.2 MOS/KG (273-304)
[2020-07-09] MEDS: INSULIN REGULAR 100 UNIT/ML SUBCUT SCH ×4 (07:57→20:45)
[2020-07-09] MEDS: amLODIPine 10 MG TABLET PO SCH (09:15)
[2020-07-09] MEDS: POLYETHYLENE GLYCOL POWDER 17 GM PACK PO SCH (09:15)
[2020-07-09] MEDS: DEXAMETHASONE 4 MG/1 ML VIAL IV SCH ×2 (09:15→20:45)
[2020-07-09] MEDS: BENZONATATE 100 MG CAPSULE PO SCH ×3 (09:15→20:42)
[2020-07-09] MEDS: DOCUSATE SODIUM 100 MG CAPSULE PO SCH ×2 (09:15→20:42)
[2020-07-09] MEDS: INDAPAMIDE 2.5 MG TABLET PO SCH (09:15)
[2020-07-09] MEDS: ENOXAPARIN 40 MG/0.4 ML SYRINGE SUBCUT SCH ×2 (09:15→20:42)
[2020-07-09] MEDS: PANTOPRAZOLE 40 MG TABLET PO SCH (09:15)
[2020-07-09] MEDS: ESCITALOPRAM 10 MG TABLET PO SCH (09:15)
[2020-07-09] MEDS: DULoxetine 30 MG CAPSULE PO SCH (09:15)
[2020-07-09] MEDS: MULTIVITAMIN (CENTRUM) TABLET PO SCH (09:15)
[2020-07-09] MEDS: GABAPENTIN 600 MG TABLET PO SCH (11:45)
[2020-07-09] MEDS: SIMVASTATIN 40 MG TABLET PO SCH (20:42)
[2020-07-10] MEDS: INSULIN REGULAR 100 UNIT/ML SUBCUT SCH ×4 (09:19→20:57)
[2020-07-10] MEDS: ENOXAPARIN 40 MG/0.4 ML SYRINGE SUBCUT SCH ×2 (09:20→20:57)
[2020-07-10] MEDS: POLYETHYLENE GLYCOL POWDER 17 GM PACK PO SCH (09:20)
[2020-07-10] MEDS: MULTIVITAMIN (CENTRUM) TABLET PO SCH (09:21)
[2020-07-10] MEDS: BENZONATATE 100 MG CAPSULE PO SCH ×3 (09:21→20:57)
[2020-07-10] MEDS: DULoxetine 30 MG CAPSULE PO SCH (09:21)
[2020-07-10] MEDS: DOCUSATE SODIUM 100 MG CAPSULE PO SCH ×2 (09:21→20:57)
[2020-07-10] MEDS: ESCITALOPRAM 10 MG TABLET PO SCH (09:21)
[2020-07-10] MEDS: PANTOPRAZOLE 40 MG TABLET PO SCH (09:21)
[2020-07-10] MEDS: amLODIPine 10 MG TABLET PO SCH (09:21)
[2020-07-10] MEDS: DEXAMETHASONE 4 MG/1 ML VIAL IV SCH ×2 (09:21→20:56)
[2020-07-10] MEDS: INDAPAMIDE 2.5 MG TABLET PO SCH (09:21)
[2020-07-10] MEDS: GABAPENTIN 600 MG TABLET PO SCH (12:37)
[2020-07-10] MEDS: SIMVASTATIN 40 MG TABLET PO SCH (20:57)
[2020-07-11 05:16] LABS: Basophils % 0.1 % (0.0-0.8); Eosinophils % 0.3 % (0.00-10.9); Hematocrit 33.9 VOL% (35.7-47.0); Hemoglobin 11.9 GM/DL (12.0-16.0); Immature Granulocytes % 0.5 %; Immature Granulocytes Absolute 0.04 #; Lymphocytes # 1.2 10*3/uL (1.4-4.0); Lymphocytes % 15.4 % (21.3-54.2); Mean Corpuscular HGB Conc 35.1 GM/DL (32-36); Mean Corpuscular Volume 84.3 FL (87-102); Mean Platelet Volume 10.3 FL (9.6-12.0); Monocytes % 9.9 % (1.7-12.7); Neutrophils % 73.8 % (38.7-73.9); Platelet Count 359 T/CUMM (130-400); Red Blood Count 4.02 MC/CUMM (3.8-5.5); Red Cell Distribution Width 13.2 % (9.3-17.3); White Blood Count 7.5 T/CUMM (4-12)
[2020-07-11 05:51] LABS: Calcium 9.5 MG/DL (8.5-10.1); Osmolality,Calculated 285.2 MOS/KG (273-304)
[2020-07-11] MEDS: POLYETHYLENE GLYCOL POWDER 17 GM PACK PO SCH (08:21)
[2020-07-11] MEDS: DEXAMETHASONE 4 MG/1 ML VIAL IV SCH ×2 (08:21→20:12)
[2020-07-11] MEDS: ENOXAPARIN 40 MG/0.4 ML SYRINGE SUBCUT SCH ×2 (08:21→20:12)
[2020-07-11] MEDS: INSULIN REGULAR 100 UNIT/ML SUBCUT SCH ×4 (08:21→20:02)
[2020-07-11] MEDS: DOCUSATE SODIUM 100 MG CAPSULE PO SCH ×2 (08:22→20:12)
[2020-07-11] MEDS: INDAPAMIDE 2.5 MG TABLET PO SCH (08:22)
[2020-07-11] MEDS: MULTIVITAMIN (CENTRUM) TABLET PO SCH (08:22)
[2020-07-11] MEDS: DULoxetine 30 MG CAPSULE PO SCH (08:22)
[2020-07-11] MEDS: PANTOPRAZOLE 40 MG TABLET PO SCH (08:22)
[2020-07-11] MEDS: ESCITALOPRAM 10 MG TABLET PO SCH (08:22)
[2020-07-11] MEDS: BENZONATATE 100 MG CAPSULE PO SCH ×3 (08:22→20:12)
[2020-07-11] MEDS: amLODIPine 10 MG TABLET PO SCH (08:22)
[2020-07-11] MEDS: GABAPENTIN 600 MG TABLET PO SCH (12:23)
[2020-07-11] MEDS: SIMVASTATIN 40 MG TABLET PO SCH (20:12)
[2020-07-12 03:39] LABS: Eosinophils % 0.2 % (0.00-10.9); Hematocrit 33.3 VOL% (35.7-47.0); Hemoglobin 11.7 GM/DL (12.0-16.0); Immature Granulocytes % 0.6 %; Immature Granulocytes Absolute 0.05 #; Lymphocytes # 1.2 10*3/uL (1.4-4.0); Lymphocytes % 14.9 % (21.3-54.2); Mean Corpuscular HGB Conc 35.1 GM/DL (32-36); Monocytes % 9.4 % (1.7-12.7); Neutrophils % 74.9 % (38.7-73.9); Platelet Count 333 T/CUMM (130-400); Red Blood Count 4.01 MC/CUMM (3.8-5.5); Red Cell Distribution Width 13.3 % (9.3-17.3); White Blood Count 8.3 T/CUMM (4-12)
[2020-07-12 04:03] LABS: Calcium 9.3 MG/DL (8.5-10.1); Osmolality,Calculated 284.1 MOS/KG (273-304)
[2020-07-12] MEDS: DOCUSATE SODIUM 100 MG CAPSULE PO SCH ×2 (08:19→20:39)
[2020-07-12] MEDS: INDAPAMIDE 2.5 MG TABLET PO SCH (08:19)
[2020-07-12] MEDS: PANTOPRAZOLE 40 MG TABLET PO SCH (08:19)
[2020-07-12] MEDS: MULTIVITAMIN (CENTRUM) TABLET PO SCH (08:19)
[2020-07-12] MEDS: DULoxetine 30 MG CAPSULE PO SCH (08:19)
[2020-07-12] MEDS: BENZONATATE 100 MG CAPSULE PO SCH ×3 (08:19→20:50)
[2020-07-12] MEDS: ESCITALOPRAM 10 MG TABLET PO SCH (08:20)
[2020-07-12] MEDS: ENOXAPARIN 40 MG/0.4 ML SYRINGE SUBCUT SCH ×2 (08:20→20:50)
[2020-07-12] MEDS: POLYETHYLENE GLYCOL POWDER 17 GM PACK PO SCH (08:20)
[2020-07-12] MEDS: DEXAMETHASONE 4 MG/1 ML VIAL IV SCH ×2 (08:20→20:49)
[2020-07-12] MEDS: amLODIPine 10 MG TABLET PO SCH (08:21)
[2020-07-12] MEDS: INSULIN REGULAR 100 UNIT/ML SUBCUT SCH ×4 (10:25→20:45)
[2020-07-12] MEDS: GABAPENTIN 600 MG TABLET PO SCH (11:51)
[2020-07-12] MEDS: ACETAMINOPHEN 325 MG TABLET PO PRN (20:50)
[2020-07-12] MEDS: CLORAZEPATE 7.5 MG TABLET PO PRN (20:50)
[2020-07-12] MEDS: SIMVASTATIN 40 MG TABLET PO SCH (20:50)
[2020-07-13 06:26] LABS: Eosinophils % 0.2 % (0.00-10.9); Hematocrit 33.1 VOL% (35.7-47.0); Hemoglobin 11.5 GM/DL (12.0-16.0); Immature Granulocytes % 0.5 %; Immature Granulocytes Absolute 0.04 #; Lymphocytes # 1.6 10*3/uL (1.4-4.0); Lymphocytes % 18.5 % (21.3-54.2); Mean Corpuscular HGB Conc 34.7 GM/DL (32-36); Mean Corpuscular Volume 85.3 FL (87-102); Mean Platelet Volume 10.7 FL (9.6-12.0); Monocytes % 9.9 % (1.7-12.7); Neutrophils % 70.9 % (38.7-73.9); Platelet Count 317 T/CUMM (130-400); Red Blood Count 3.88 MC/CUMM (3.8-5.5); Red Cell Distribution Width 13.2 % (9.3-17.3); White Blood Count 8.8 T/CUMM (4-12)
[2020-07-13 06:36] LABS: Calcium 9.3 MG/DL (8.5-10.1)
[2020-07-13] MEDS: MULTIVITAMIN (CENTRUM) TABLET PO SCH (08:12)
[2020-07-13] MEDS: DULoxetine 30 MG CAPSULE PO SCH (08:12)
[2020-07-13] MEDS: PANTOPRAZOLE 40 MG TABLET PO SCH (08:12)
[2020-07-13] MEDS: amLODIPine 10 MG TABLET PO SCH (08:12)
[2020-07-13] MEDS: ENOXAPARIN 40 MG/0.4 ML SYRINGE SUBCUT SCH ×2 (08:13→20:28)
[2020-07-13] MEDS: INDAPAMIDE 2.5 MG TABLET PO SCH (08:13)
[2020-07-13] MEDS: ESCITALOPRAM 10 MG TABLET PO SCH (08:13)
[2020-07-13] MEDS: BENZONATATE 100 MG CAPSULE PO SCH ×3 (08:13→20:28)
[2020-07-13] MEDS: INSULIN REGULAR 100 UNIT/ML SUBCUT SCH ×4 (08:14→19:57)
[2020-07-13] MEDS: DEXAMETHASONE 4 MG/1 ML VIAL IV SCH (08:14)
[2020-07-13] MEDS: POLYETHYLENE GLYCOL POWDER 17 GM PACK PO SCH (09:28)
[2020-07-13] MEDS: DOCUSATE SODIUM 100 MG CAPSULE PO SCH ×2 (09:28→20:28)
[2020-07-13] MEDS: POTASSIUM CHLORIDE 10 MEQ TABLET PO SCH ×2 (10:15→20:27)
[2020-07-13] MEDS: GABAPENTIN 600 MG TABLET PO SCH (11:50)
[2020-07-13] MEDS: SIMVASTATIN 40 MG TABLET PO SCH (20:28)
[2020-07-13] MEDS: ACETAMINOPHEN 325 MG TABLET PO PRN (20:28)
[2020-07-14 07:23] VITALS: BP 123/71
[2020-07-14 07:28] LABS: Basophils % 0.4 % (0.0-0.8); Eosinophils # 0.3 10*3/uL (0.0-0.87); Eosinophils % 3.7 % (0.00-10.9); Hematocrit 34.6 VOL% (35.7-47.0); Hemoglobin 11.8 GM/DL (12.0-16.0); Immature Granulocytes % 0.4 %; Immature Granulocytes Absolute 0.03 #; Lymphocytes # 2.2 10*3/uL (1.4-4.0); Lymphocytes % 31.4 % (21.3-54.2); Mean Corpuscular HGB Conc 34.1 GM/DL (32-36); Mean Corpuscular Volume 86.1 FL (87-102); Mean Platelet Volume 10.3 FL (9.6-12.0); Neutrophils % 53.1 % (38.7-73.9); Platelet Count 290 T/CUMM (130-400); Red Blood Count 4.02 MC/CUMM (3.8-5.5); Red Cell Distribution Width 13.6 % (9.3-17.3); White Blood Count 7.1 T/CUMM (4-12)
[2020-07-14 07:47] LABS: Calcium 9.1 MG/DL (8.5-10.1); Osmolality,Calculated 284.7 MOS/KG (273-304)
[2020-07-14] MEDS: INSULIN REGULAR 100 UNIT/ML SUBCUT SCH (08:30)
[2020-07-14] MEDS: PANTOPRAZOLE 40 MG TABLET PO SCH (08:31)
[2020-07-14] MEDS: POTASSIUM CHLORIDE 10 MEQ TABLET PO SCH (08:31)
[2020-07-14] MEDS: INDAPAMIDE 2.5 MG TABLET PO SCH (08:31)
[2020-07-14] MEDS: ACETAMINOPHEN 325 MG TABLET PO PRN (08:31)
[2020-07-14] MEDS: MULTIVITAMIN (CENTRUM) TABLET PO SCH (08:31)
[2020-07-14] MEDS: amLODIPine 10 MG TABLET PO SCH (08:31)
[2020-07-14] MEDS: ESCITALOPRAM 10 MG TABLET PO SCH (08:32)
[2020-07-14] MEDS: POLYETHYLENE GLYCOL POWDER 17 GM PACK PO SCH (08:32)
[2020-07-14] MEDS: ENOXAPARIN 40 MG/0.4 ML SYRINGE SUBCUT SCH (08:32)
[2020-07-14] MEDS: DOCUSATE SODIUM 100 MG CAPSULE PO SCH (08:32)
[2020-07-14] MEDS: BENZONATATE 100 MG CAPSULE PO SCH (08:37)
[2020-07-14] MEDS: DULoxetine 30 MG CAPSULE PO SCH (08:37)
== END 2020-07-14 10:15 | disposition home health service (06) | DRG 177 ==
LOC: N.ED 04:03 → N.EDINP 07:27 → SUATTDRO 07:27 → N.2E 19:50 → N.CC 07-04 22:58 → N.2E 07-08 15:52
PROVIDERS: ADMIT Family Medicine; ATTEND Family Medicine

== ENCOUNTER 2021-05-16 10:31 | Observation (INO) ==
[2021-05-16 10:59] LABS: Basophils % 0.4 % (0.0-0.8); Eosinophils % 0.2 % (0.00-10.9); Hematocrit 39.8 VOL% (35.7-47.0); Hemoglobin 13.9 GM/DL (12.0-16.0); Immature Granulocytes % 0.5 %; Immature Granulocytes Absolute 0.04 #; Lymphocytes # 2.6 10*3/uL (1.4-4.0); Lymphocytes % 30.9 % (21.3-54.2); Mean Corpuscular HGB Conc 34.9 GM/DL (32-36); Mean Corpuscular Volume 85.8 FL (87-102); Mean Platelet Volume 9.7 FL (9.6-12.0); Monocytes % 7.8 % (1.7-12.7); Neutrophils % 60.2 % (38.7-73.9); Platelet Count 350 T/CUMM (130-400); Red Blood Count 4.64 MC/CUMM (3.8-5.5); Red Cell Distribution Width 11.9 % (9.3-17.3); White Blood Count 8.4 T/CUMM (4-12)
[2021-05-16 11:28] LABS: Albumin 4.4 G/DL (3.4-5.0); Bilirubin,Total 0.6 MG/DL (0.2-1.0); Calcium 9.6 MG/DL (8.5-10.1); Osmolality,Calculated 276.8 MOS/KG (273-304); Potassium 3.2 MMOL/L (3.5-5.1); Total Protein 8.2 G/DL (6.4-8.2)
[2021-05-16] MEDS ORDERED: ONDANSETRON 4 MG/2 ML VIAL IV PRN (15:40)
[2021-05-16] MEDS ORDERED: ACETAMINOPHEN 325 MG TABLET PO PRN (15:40)
[2021-05-16] MEDS: DOCUSATE SODIUM 100 MG CAPSULE PO SCH (22:00)
[2021-05-17] MEDS ORDERED: ZALEPLON 5 MG CAPSULE PO PRN (07:47)
[2021-05-17 08:00] LABS: Basophils % 0.4 % (0.0-0.8); Eosinophils % 0.6 % (0.00-10.9); Hematocrit 38.1 VOL% (35.7-47.0); Immature Granulocytes % 0.3 %; Immature Granulocytes Absolute 0.02 #; Lymphocytes # 2.5 10*3/uL (1.4-4.0); Lymphocytes % 34.3 % (21.3-54.2); Mean Corpuscular HGB Conc 34.1 GM/DL (32-36); Mean Corpuscular Volume 86.8 FL (87-102); Monocytes % 8.7 % (1.7-12.7); Neutrophils % 55.7 % (38.7-73.9); Platelet Count 335 T/CUMM (130-400); Red Blood Count 4.39 MC/CUMM (3.8-5.5); White Blood Count 7.2 T/CUMM (4-12)
[2021-05-17 08:08] LABS: Risk Ratio 3.84; VLDL Cholesterol 23.4 MG/DL
[2021-05-17 08:25] LABS: Albumin 4.3 G/DL (3.4-5.0); Bilirubin,Total 0.4 MG/DL (0.2-1.0); Calcium 9.6 MG/DL (8.5-10.1); Osmolality,Calculated 279.7 MOS/KG (273-304); Potassium 3.4 MMOL/L (3.5-5.1); Total Protein 8.3 G/DL (6.4-8.2)
[2021-05-17] MEDS: DULoxetine 30 MG CAPSULE PO SCH (08:40)
[2021-05-17] MEDS: DOCUSATE SODIUM 100 MG CAPSULE PO SCH ×2 (08:40→21:10)
[2021-05-17] MEDS: BACLOFEN 10 MG TABLET PO SCH ×2 (08:40→21:09)
[2021-05-17] MEDS: GABAPENTIN 100 MG CAPSULE PO SCH ×2 (08:40→21:10)
[2021-05-17] MEDS: amLODIPine 10 MG TABLET PO SCH (08:40)
[2021-05-17] MEDS: PANTOPRAZOLE 40 MG TABLET PO SCH (08:40)
[2021-05-17] MEDS: DEXT 5% NACL 0.45% KCL 20 MEQ 20 MEQ/1,000 ML BAG IV SCH ×3 (08:41→18:20)
[2021-05-17] MEDS: INDAPAMIDE 2.5 MG TABLET PO SCH (08:50)
[2021-05-17 13:36] LABS: Bilirubin,Urine Negative (Negative); Blood, Urine Negative (Negative); Glucose,Urine (UA) Negative (Negative); Ketones,Urine Negative (Negative); Mucus,Urine Occasional /LPF (Occasional); Nitrite,Urine Negative (Negative); Protein,Urine 30 MG/DL; RBC,Urine 4 /HPF (0-4); Squamous Epithelial Cell,Urine Many /HPF (0-10); Urine Appearance Slightly Hazy (Clear); Urine Color Yellow (Yellow); Urine Specific Gravity 1.016 (1.001-1.035); Urine Urobilinogen < 2.0 EU/DL (0.2-1.0)
[2021-05-17] MEDS: VALSARTAN 80 MG TABLET PO SCH (16:18)
[2021-05-17] MEDS ORDERED: SIMVASTATIN 40 MG TABLET PO SCH (21:00)
[2021-05-17] MEDS ORDERED: ROSUVASTATIN 20 MG TABLET PO SCH (21:00)
[2021-05-17] MEDS ORDERED: ESCITALOPRAM 10 MG TABLET PO SCH (21:00)
[2021-05-18] MEDS: DEXT 5% NACL 0.45% KCL 20 MEQ 20 MEQ/1,000 ML BAG IV SCH (01:51)
[2021-05-18 05:11] LABS: Basophils % 0.5 % (0.0-0.8); Eosinophils # 0.1 10*3/uL (0.0-0.87); Eosinophils % 1.1 % (0.00-10.9); Hematocrit 36.5 VOL% (35.7-47.0); Hemoglobin 12.6 GM/DL (12.0-16.0); Immature Granulocytes % 0.4 %; Immature Granulocytes Absolute 0.03 #; Lymphocytes # 3.2 10*3/uL (1.4-4.0); Lymphocytes % 37.9 % (21.3-54.2); Mean Corpuscular HGB Conc 34.5 GM/DL (32-36); Mean Corpuscular Volume 86.9 FL (87-102); Monocytes % 8.8 % (1.7-12.7); Neutrophils % 51.3 % (38.7-73.9); Platelet Count 327 T/CUMM (130-400); Red Cell Distribution Width 11.9 % (9.3-17.3); White Blood Count 8.5 T/CUMM (4-12)
[2021-05-18 05:34] LABS: Albumin 3.7 G/DL (3.4-5.0); Bilirubin,Total 0.8 MG/DL (0.2-1.0); Calcium 9.2 MG/DL (8.5-10.1); Osmolality,Calculated 279.7 MOS/KG (273-304); Potassium 3.6 MMOL/L (3.5-5.1); Thyroid Stimulating Hormone 1.34 uIU/ml (0.358-3.74); Total Protein 7.4 G/DL (6.4-8.2)
[2021-05-18 08:25] VITALS: BP 136/49
[2021-05-18] MEDS ORDERED: CHOLECALCIFEROL 1,000 UNIT TABLET PO SCH (09:00)
[2021-05-18] MEDS: DULoxetine 30 MG CAPSULE PO SCH (09:12)
[2021-05-18] MEDS: PANTOPRAZOLE 40 MG TABLET PO SCH (09:12)
[2021-05-18] MEDS: VALSARTAN 80 MG TABLET PO SCH (09:12)
[2021-05-18] MEDS: BACLOFEN 10 MG TABLET PO SCH (09:12)
[2021-05-18] MEDS: GABAPENTIN 100 MG CAPSULE PO SCH (09:12)
[2021-05-18] MEDS: INDAPAMIDE 2.5 MG TABLET PO SCH (09:13)
[2021-05-18] MEDS: amLODIPine 10 MG TABLET PO SCH (09:13)
[2021-05-18] MEDS: DOCUSATE SODIUM 100 MG CAPSULE PO SCH (09:13)
== END 2021-05-18 10:20 | disposition home or self-care (01) ==
LOC: N.ED 10:31 → N.EDINP 10:31 → N.5E 15:32
PROVIDERS: ADMIT Family Medicine; ATTEND Family Medicine